=== PATIENT | male | born 1965 | race Caucasian/White ===

== ENCOUNTER 2017-01-01 09:50 | Inpatient (IN) | payer OTHER ==
[2017-01-01] VITALS (8 sets, daily range): BP systolic 168–214; BP diastolic 87–120; PULSE 59–88; TEMP 36.5–37; O2SAT 95–97; BMI 29.9
[~2017-01-01] VITALS: Ht 182.9 cm; Wt 93.5 kg
[2017-01-01] MEDS ORDERED: HydrALAZINE HCL 20 MG/ML VIAL IV. STA (10:13)
[2017-01-01] MEDS ORDERED: LABETALOL HCL IV 5 MG/ML 20ML IV STA (10:13)
--- NOTE | 2017-01-01 10:27 | EMERGENCY ROOM VISIT NOTE ---
History Report prepared by Sharlene: Andreia Guevara Under the Supervision of: Dr. Bandar Estevez M.D. First contact with patient: 10:07 Chief Complaint: STROKE SYMPTOMS Stated Complaint: NUMBNESS IN LEFT SIDE OF BODY Nursing Triage Summary: pt c/o left arm going numb and left leg numb. started at 0830 and happened 8 days ago got better after lying down. denies any headache .n/v/ History of Present Illness The patient is a 52 year old male who presents to the Emergency Room with complaints of persistent stroke symptoms that began today prior to arrival. The patient states that today he is experiencing left leg and left arm numbness. He states that he was just about to get in the shower when his symptoms began. The patient states that it started in his left hand and then in his left leg, noting numbness. He states that he had a similar episode 8 days ago. The patient states that with both episodes he became diaphoretic. He denies any medical history, denying any history of hypertension. The patient denies having a PCP. He states that his mother in law had a recent stroke. The patient denies any abdominal pain. Source of History: patient Onset: prior to arrival Position: other (global) Quality: other (stroke symptoms) Timing: other (persistent) Associated Symptoms: + numbness (left leg and left arm), No abdominal pain Review of Systems See HPI for pertinent positives & negatives. A total of 10 systems reviewed and were otherwise negative. Past Medical & Surgical Medical Problems: (1) No Known Active Medical Problems (2) Stroke-like symptom Family History Hypertension Social History Smoking Status: Never Smoker Smokeless Tobacco Use: No Marital Status: Housing Status: lives with significant other Occupation Status: employed Current/Historical Medications Scheduled PRN Aspirin (Aspirin Ec), 1 DOSE PO UD PRN for STROKE SYMPTOMS Allergies Coded Allergies: No Known Allergies (Unverified , 01/01/17) Physical Exam Vital Signs Date Time Temp Pulse Resp B/P (MAP) Pulse Ox O2 Delivery O2 Flow Rate FiO2 01/01/17 13:24 69 18 170/91 98 Room Air 01/01/17 12:45 71 20 185/110 97 Room Air 01/01/17 11:55 60 20 246/123 96 Room Air 01/01/17 11:06 72 18 241/152 95 Room Air 01/01/17 10:07 98 Room Air 01/01/17 10:02 36.6 68 18 260/126 96 Room Air Physical Exam GENERAL: Patient is a healthy-appearing well-nourished male HEAD: Normocephalic atraumatic EYES: Ocular movements intact pupils equal and react to light OROPHARYNX mucous membranes are moist no exudates present no erythema or edema present NECK: Supple no nuchal rigidity CHEST: Good equal expansion LUNGS: Clear and equal to auscultation CARDIAC: Normal S1 and S2 ABDOMEN: Soft nontender no guarding BACK: No CVA tenderness EXTREMITIES: No pain upon palpation normal muscle strength in all groups no clubbing cyanosis or edema NEURO: Patient is following commands and answering questions appropriately. Alert and oriented x3 Cranial Nerves 2-12 grossly intact Medical Decision & Procedures ER Provider Diagnostic Interpretation: Radiology results as stated below per my review and radiologist interpretation: HEAD WITHOUT CONTRAST (CT) CLINICAL HISTORY: 52 years-old Male presenting with Stroke, left arm numbness and left leg numbness. TECHNIQUE: Multidetector CT imaging of the head was performed without the use of intravenous contrast. IV contrast: None. A dose lowering technique was used consistent with the principles of ALARA (as low as reasonably achievable). COMPARISON: None. CT DOSE (mGy.cm): The estimated cumulative dose is 537.48 mGy.cm. 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 Ventricles and sulci normal in size. Brain parenchyma normal in appearance with preserved caro-white differentiation. No mass effect or midline shift. No hemorrhage or acute territorial infarct. No extra-axial fluid collection. Paranasal sinuses and mastoid air cells clear. Calvarium intact. IMPRESSION: 1. No acute intracranial pathology. Electronically signed by: Viraj Fiore M.D. 01/01/2017 10:56 AM Dictated Date/Time: 01/01/2017 10:53 AM CHEST ONE VIEW PORTABLE CLINICAL HISTORY: 52 years-old Male presenting with Stroke. TECHNIQUE: Portable upright AP view of the chest was obtained. COMPARISON: None. FINDINGS: Cardiomediastinal silhouette normal. Lungs and pleural spaces clear. Osseous structures normal. Upper abdomen normal. IMPRESSION: 1. No acute cardiopulmonary disease. Electronically signed by: Viraj Fiore M.D. 01/01/2017 10:40 AM Dictated Date/Time: 01/01/2017 10:40 AM Laboratory Results 01/01/17 10:38 Red Blood Count 5.50, Mean Corpuscular Volume 82.7, Mean Corpuscular Hemoglobin 30.9, Mean Corpuscular Hemoglobin Concent 37.4, Mean Platelet Volume 10.9, Neutrophils (%) (Auto) 66.2, Lymphocytes (%) (Auto) 23.2, Monocytes (%) (Auto) 6.0, Eosinophils (%) (Auto) 3.8, Basophils (%) (Auto) 0.6, Neutrophils # (Auto) 4.23, Lymphocytes # (Auto) 1.48, Monocytes # (Auto) 0.38, Eosinophils # (Auto) 0.24, Basophils # (Auto) 0.04 01/01/17 10:38 Test 01/01/17 10:34 01/01/17 10:38 Bedside Glucose 320 mg/dl (70-99) White Blood Count 6.38 K/uL (4.8-10.8) Red Blood Count 5.50 M/uL (4.7-6.1) Hemoglobin 17.0 g/dL (14.0-18.0) Hematocrit 45.5 % (42-52) Mean Corpuscular Volume 82.7 fL (80-100) Mean Corpuscular Hemoglobin 30.9 pg (25-34) Mean Corpuscular Hemoglobin Concent 37.4 g/dl (32-36) Platelet Count 282 K/uL (130-400) Mean Platelet Volume 10.9 fL (7.4-10.4) Neutrophils (%) (Auto) 66.2 % Lymphocytes (%) (Auto) 23.2 % Monocytes (%) (Auto) 6.0 % Eosinophils (%) (Auto) 3.8 % Basophils (%) (Auto) 0.6 % Neutrophils # (Auto) 4.23 K/uL (1.4-6.5) Lymphocytes # (Auto) 1.48 K/uL (1.2-3.4) Monocytes # (Auto) 0.38 K/uL (0.11-0.59) Eosinophils # (Auto) 0.24 K/uL (0-0.5) Basophils # (Auto) 0.04 K/uL (0-0.2) RDW Standard Deviation 37.9 fL (36.4-46.3) RDW Coefficient of Variation 12.7 % (11.5-14.5) Immature Granulocyte % (Auto) 0.2 % Immature Granulocyte # (Auto) 0.01 K/uL (0.00-0.02) Prothrombin Time 10.4 SECONDS (9.0-12.0) Prothromb Time International Ratio 1.0 (0.9-1.1) Activated Partial Thromboplast Time 27.1 SECONDS (21.0-31.0) Partial Thromboplastin Ratio 1.0 Anion Gap 6.0 mmol/L (3-11) Est Creatinine Clear Calc Drug Dose 71.6 ml/min Estimated GFR () 62.7 Estimated GFR (Non- 54.1 BUN/Creatinine Ratio 9.7 (10-20) Estimated Average Glucose 246 mg/dl Hemoglobin A1c 10.2 % (4.5-5.6) Calcium Level 9.4 mg/dl (8.5-10.1) Magnesium Level 2.1 mg/dl (1.8-2.4) Total Creatine Kinase 115 U/L (39-308) Creatine Kinase MB 1.9 ng/ml (0.5-3.6) Creatine Kinase MB Ratio 1.7 (0-3.0) Troponin I < 0.015 ng/ml (0-0.045) Beta-Hydroxybutyric Acid 1.47 mg/dL (0.2-2.81) Labs reviewed by ED physician. Medications Administered Medications (Trade) Dose Ordered Sig/Will Route Start Time Stop Time Status Last Admin Dose Admin Labetalol HCl (Normodyne IV) 10 mg NOW STAT IV 01/01/17 10:13 01/01/17 10:17 DC 01/01/17 11:03 10 MG Hydralazine HCl (HydrALAZINE INJ) 10 mg NOW STAT IV. 01/01/17 10:13 01/01/17 10:17 DC 01/01/17 11:01 10 MG Insulin Human Regular (novoLIN-R) 10 units NOW STAT SC 01/01/17 10:36 01/01/17 10:38 DC 01/01/17 11:05 10 UNITS Sodium Chloride 500 ml @ 999 mls/hr Q31M STAT IV 01/01/17 11:08 01/01/17 11:38 DC 01/01/17 11:23 999 MLS/HR Nicardipine HCl 25 mg/Sodium Chloride 250 ml @ 0 mls/hr Q0M STAT IV 01/01/17 11:31 01/01/17 11:33 DC 01/01/17 12:12 5 MLS/HR ED Course 1011: Past medical records reviewed. The patient was evaluated in room B2. A complete history and physical examination was performed. 1013: Ordered Hydralazine HCl 10 mg IV, Labetalol HCl 10 mg IV. 1036: Ordered Insulin Human Regular 10 units SC. 1108: Ordered Sodium Chloride 500 ml @ 999 mls/hr IV. 1121: I reevaluated the patient and he is resting comfortably. I discussed the exam findings with him and I discussed the treatment plan. He verbalized complete understanding and agreement. He is going to be evaluated for further treatment 1130: I discussed the patient's case with Emilia العراقي. He is going to evaluate the patient for further treatment. Medical Decision Differential diagnosis: Etiologies such as metabolic, infection, hypo/hyperglycemia, electrolyte abnormalities, cardiac sources, intracerebral event, toxicologic, neurologic, as well as others were entertained. This is a 52-year-old male who presents emergency department complaining of numbness to his left arm and left leg. The patient's blood pressure is grossly elevated. He has not been to see a doctor for several years. His blood sugar was found to be 300. Because of this the patient was given subcutaneous insulin in the emergency department and started on labetalol as well as hydralazine. Repeat exam revealed the patient's blood pressure still to be elevated. For this reason he was placed on a nicardipine drip. His creatinine is 1.4. He has a normal CAT scan of the head as well as a normal chest x-ray. I did discuss the case with the hospitalist service who agreed to admit the patient. Both patient and family were in agreement with the treatment plan. Medication Reconcilliation Current Medication List: was personally reviewed by me Blood Pressure Screening Patient's blood pressure: Elevated blood pressure Blood pressure disposition: Referred to PCP Consults Time Called: 1119 Consulting Physician: Emilia العراقي Returned Call: 1130 I discussed the patient's case with Emilia العراقي. He is going to evaluate the patient for further treatment. Impression Primary Impression: Hypertensive urgency Scribe Attestation The scribe's documentation has been prepared under my direction and personally reviewed by me in its entirety. I confirm that the note above accurately reflects all work, treatment, procedures, and medical decision making performed by me. Departure Information Dispostion Being Evaluated By Hospitalist Referrals No Doctor, Assigned (PCP)
[2017-01-01] MEDS ORDERED: INSULIN HUMAN REGULAR SC STA (10:36)
--- NOTE | 2017-01-01 10:42 | DIAGNOSTIC IMAGING REPORT ---
CHEST ONE VIEW PORTABLE CLINICAL HISTORY: 52 years-old Male presenting with Stroke. TECHNIQUE: Portable upright AP view of the chest was obtained. COMPARISON: None. FINDINGS: Cardiomediastinal silhouette normal. Lungs and pleural spaces clear. Osseous structures normal. Upper abdomen normal. IMPRESSION: 1. No acute cardiopulmonary disease. Electronically signed by: Viraj Fiore M.D. 01/01/2017 10:40 AM Dictated Date/Time: 01/01/2017 10:40 AM
[2017-01-01] MEDS ORDERED: ASPI81TA28 PO (10:48)
[2017-01-01 10:56] LABS: BASO % 0.6 %; BASO ABS # 0.04 K/uL (0-0.2); COMPLETE YES; EOS % 3.8 %; HEMATOCRIT 45.5 % (42-52); IG% 0.2 %; LYMPH % 23.2 %; LYMPH ABS # 1.48 K/uL (1.2-3.4); MEAN CELL VOLUME 82.7 fL (80-100); MEAN CORPUSCULAR HEMOGLOBIN 30.9 pg (25-34); MEAN CORPUSCULAR HGB CONC 37.4 g/dl (32-36); MEAN PLATELET VOLUME 10.9 fL (7.4-10.4); NEUT % 66.2 %; PLATELET COUNT 282 K/uL (130-400); WHITE BLOOD COUNT 6.38 K/uL (4.8-10.8)
[2017-01-01] MEDS ORDERED: NovoLIN-R INSULIN PER UNIT CHARGE ONE (10:57)
--- NOTE | 2017-01-01 10:57 | DIAGNOSTIC IMAGING REPORT ---
HEAD WITHOUT CONTRAST (CT) CLINICAL HISTORY: 52 years-old Male presenting with Stroke, left arm numbness and left leg numbness. TECHNIQUE: Multidetector CT imaging of the head was performed without the use of intravenous contrast. IV contrast: None. A dose lowering technique was used consistent with the principles of ALARA (as low as reasonably achievable). COMPARISON: None. CT DOSE (mGy.cm): The estimated cumulative dose is 537.48 mGy.cm. 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 Ventricles and sulci normal in size. Brain parenchyma normal in appearance with preserved caro-white differentiation. No mass effect or midline shift. No hemorrhage or acute territorial infarct. No extra-axial fluid collection. Paranasal sinuses and mastoid air cells clear. Calvarium intact. IMPRESSION: 1. No acute intracranial pathology. Electronically signed by: Viraj Fiore M.D. 01/01/2017 10:56 AM Dictated Date/Time: 01/01/2017 10:53 AM
[2017-01-01 11:06] LABS: BLOOD UREA NITROGEN 14 mg/dl (7-18); BUN/CREATININE RATIO 9.7 (10-20); CALCIUM 9.4 mg/dl (8.5-10.1); CARBON DIOXIDE 29 mmol/L (21-32); CHLORIDE 103 mmol/L (98-107); CREATININE 1.46 mg/dl (0.60-1.40); GLUCOSE 294 mg/dl (70-99); MAGNESIUM 2.1 mg/dl (1.8-2.4); POTASSIUM 4.1 mmol/L (3.5-5.1); SODIUM 138 mmol/L (136-145)
[2017-01-01] MEDS ORDERED: SODIUM CHLORIDE 0.9% 500ML 500 ML IV STA (11:08)
[2017-01-01 11:11] LABS: BETA-HYDROXYBUTYRATE 1.47 mg/dL (0.2-2.81); CKMB/CK RATIO 1.7 (0-3.0); PROTHROMBIN TIME (PATIENT) 10.4 SECONDS (9.0-12.0)
[2017-01-01] MEDS ORDERED: NiCARDipine IV 25 MG in SODIUM CHLORIDE 0.9% 250ML 240 ML IV STA (11:31)
[2017-01-01] MEDS ORDERED: GLUCAGON FOR INJ 1 MG VIAL SQ PRN (12:15)
[2017-01-01] MEDS ORDERED: GLUCOSE 10 TABS/TUBE PO PRN (12:15)
[2017-01-01] MEDS ORDERED: GLUCOSE 40% GEL 15 GM TUBE PO PRN (12:15)
[2017-01-01] MEDS ORDERED: NITROGLYCERIN 0.4 MG SL PER TAB CHARGE SL PRN (12:15)
[2017-01-01] MEDS ORDERED: DEXTROSE 50% 50 ML SYR IV PRN (12:15)
[2017-01-01] MEDS ORDERED: ACETAMINOPHEN 325 MG TAB PO PRN (12:15)
[2017-01-01 12:19] LABS: ESTIMATED AVERAGE GLUCOSE 246 mg/dl; HA1C FLAG Normal (Normal)
--- NOTE | 2017-01-01 12:45 | History and Physical ---
History & Physical Date & Time of Service: Jan 01, 2017 at 12:27 Chief Complaint: Numbness In Left Side Of Body Primary Care Physician: No Doctor, Assigned History of Present Illness Source: patient, family This is a 52 year old male with no past medical history - does not follow with a primary care physician and does no take any medications - presents secondary to L sided weakness; L arm numbness/tingling and L leg motor weakness. States that he had this about 8 days prior to arrival, and the symptoms lasted around 20 minutes. He states that another time, he was having trouble typing with his left hand; it was weak and he was missing the keys. This morning, he developed L sided weakness/numbness/tingling again; again it lasted about 20 minutes and symptoms began to subside, but he came to the ER for further evaluation. On presentation, he was noted to have blood pressure >250/100; noted to have blood sugars >300. Head CT was negative. Symptoms resolved, but blood pressure remained high. Family History Hypertension Social History Smoking Status: Never Smoker Smokeless Tobacco Use: No Marital Status: Occupational Status: employed Allergies Coded Allergies: No Known Allergies (Unverified , 01/01/17) Home Medications Scheduled PRN Aspirin (Aspirin Ec), 1 DOSE PO UD PRN for STROKE SYMPTOMS Review of Systems Constitutional: No fever, No chills, No sweats, No weight loss, No weakness, No fatigue Eyes: No worsening of vision Respiratory: No cough, No sputum, No shortness of breath, No dyspnea on exertion, No dyspnea at rest, No hemoptysis Cardiovascular: No chest pain, No edema, No palpitations Abdomen: No pain, No nausea, No vomiting, No diarrhea, No constipation, No GI bleeding Musculoskeletal: No joint pain, No muscle pain Genitourinary - Male: No hematuria, No dysuria, No urinary frequency, No urinary urgency, No urinary hesitancy, No urinary retention, No urinary incontinence, No penile discharge, No lesions, No impotence Neurologic: + weakness, + numbness/tingling (L sided), No memory loss, No paralysis, No vertigo, No balance problems Psychiatric: No depression symptoms, No anxiety, No insomnia, No substance abuse Endocrine: No fatigue Hematologic / Lymphatic: No abnormal bleeding/bruising Integumentary: No rash, No itch Allergic / Immunologic: No environmental allergies, No seasonal allergies Physical Exam Vital Signs Date Time Temp Pulse Resp B/P (MAP) Pulse Ox O2 Delivery O2 Flow Rate FiO2 01/01/17 11:55 60 20 246/123 96 Room Air 01/01/17 11:06 72 18 241/152 95 Room Air 01/01/17 10:07 98 Room Air 01/01/17 10:02 36.6 68 18 260/126 96 Room Air General Appearance: no apparent distress Head: normocephalic, atraumatic Eyes: normal inspection ENT: hearing grossly normal Neck: supple Respiratory/Chest: chest non-tender, lungs clear, normal breath sounds, no respiratory distress, no accessory muscle use Cardiovascular: regular rate, rhythm, no edema, no gallop, no JVD, no murmur, normal peripheral pulses Abdomen/GI: normal bowel sounds, non tender, soft Back: no CVA tenderness, no muscle spasm Extremities/Musculoskelatal: normal inspection, no calf tenderness, normal capillary refill, no pedal edema, normal range of motion 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, no motor/sensory deficits, alert, normal mood/affect, normal reflexes, oriented x 3 Skin: normal color Lymphatic: no adenopathy Diagnostics Laboratory Results Results Past 24 Hours Test 01/01/17 10:34 01/01/17 10:38 Range/Units Bedside Glucose 320 70-99 mg/dl White Blood Count 6.38 4.8-10.8 K/uL Red Blood Count 5.50 4.7-6.1 M/uL Hemoglobin 17.0 14.0-18.0 g/dL Hematocrit 45.5 42-52 % Mean Corpuscular Volume 82.7 80-100 fL Mean Corpuscular Hemoglobin 30.9 25-34 pg Mean Corpuscular Hemoglobin Concent 37.4 32-36 g/dl Platelet Count 282 130-400 K/uL Mean Platelet Volume 10.9 7.4-10.4 fL Neutrophils (%) (Auto) 66.2 % Lymphocytes (%) (Auto) 23.2 % Monocytes (%) (Auto) 6.0 % Eosinophils (%) (Auto) 3.8 % Basophils (%) (Auto) 0.6 % Neutrophils # (Auto) 4.23 1.4-6.5 K/uL Lymphocytes # (Auto) 1.48 1.2-3.4 K/uL Monocytes # (Auto) 0.38 0.11-0.59 K/uL Eosinophils # (Auto) 0.24 0-0.5 K/uL Basophils # (Auto) 0.04 0-0.2 K/uL RDW Standard Deviation 37.9 36.4-46.3 fL RDW Coefficient of Variation 12.7 11.5-14.5 % Immature Granulocyte % (Auto) 0.2 % Immature Granulocyte # (Auto) 0.01 0.00-0.02 K/uL Prothrombin Time 10.4 9.0-12.0 SECONDS Prothromb Time International Ratio 1.0 0.9-1.1 Activated Partial Thromboplast Time 27.1 21.0-31.0 SECONDS Partial Thromboplastin Ratio 1.0 Sodium Level 138 136-145 mmol/L Potassium Level 4.1 3.5-5.1 mmol/L Chloride Level 103 98-107 mmol/L Carbon Dioxide Level 29 21-32 mmol/L Anion Gap 6.0 3-11 mmol/L Blood Urea Nitrogen 14 7-18 mg/dl Creatinine 1.46 0.60-1.40 mg/dl Est Creatinine Clear Calc Drug Dose 71.6 ml/min Estimated GFR () 62.7 Estimated GFR (Non- 54.1 BUN/Creatinine Ratio 9.7 10-20 Random Glucose 294 70-99 mg/dl Estimated Average Glucose 246 mg/dl Hemoglobin A1c 10.2 4.5-5.6 % Calcium Level 9.4 8.5-10.1 mg/dl Magnesium Level 2.1 1.8-2.4 mg/dl Total Creatine Kinase 115 39-308 U/L Creatine Kinase MB 1.9 0.5-3.6 ng/ml Creatine Kinase MB Ratio 1.7 0-3.0 Troponin I < 0.015 0-0.045 ng/ml Beta-Hydroxybutyric Acid 1.47 0.2-2.81 mg/dL Diagnostic Radiology CHEST ONE VIEW PORTABLE CLINICAL HISTORY: 52 years-old Male presenting with Stroke. TECHNIQUE: Portable upright AP view of the chest was obtained. COMPARISON: None. FINDINGS: Cardiomediastinal silhouette normal. Lungs and pleural spaces clear. Osseous structures normal. Upper abdomen normal. IMPRESSION: 1. No acute cardiopulmonary disease. HEAD WITHOUT CONTRAST (CT) CLINICAL HISTORY: 52 years-old Male presenting with Stroke, left arm numbness and left leg numbness. TECHNIQUE: Multidetector CT imaging of the head was performed without the use of intravenous contrast. IV contrast: None. A dose lowering technique was used consistent with the principles of ALARA (as low as reasonably achievable). COMPARISON: None. CT DOSE (mGy.cm): The estimated cumulative dose is 537.48 mGy.cm. 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 Ventricles and sulci normal in size. Brain parenchyma normal in appearance with preserved caro-white differentiation. No mass effect or midline shift. No hemorrhage or acute territorial infarct. No extra-axial fluid collection. Paranasal sinuses and mastoid air cells clear. Calvarium intact. IMPRESSION: 1. No acute intracranial pathology. EKG Normal sinus rhythm Left ventricular hypertrophy with repolarization abnormality Impression Assessment and Plan This is a 52 year old male with no past medical history presented with L sided numbness/tingling/weakness Hypertensive Urgency patient presented with SBP >250/100 given Hydralazine, Labetalol in the ED with little change in blood pressure this seems like long-standing uncontrolled HTN due to LVH changes on EKG will check an echo start nicardipine drip at 5mg/hr initially - goal reduction should be slow; ~ 180-190 SBP in 24 hours will then need to be started on an SERGEY-I due to new diagnosis of diabetes Stroke-Like Symptoms patient presented with L sided arm and leg numbness/tingling and motor weakness which subsided likely due to malignant HTN as above Head CT negative for intracranial pathology will check an MRI, MRA of head/neck check lipid panel in AM started aspirin 81mg and Lipitor consulted neurology New Onset DM2 Ha1c = 10.2% started patient on Lantus 5 units BID and a sliding scale will likely need insulin on discharge should be started on SERGEY-I prior to discharge started on aspirin 81mg and Lipitor diabetic education consulted DVT ppx Lovenox FULL CODE VTE Prophylaxis VTE Risk Assessment Done? Y/N: Yes Risk Level: Moderate
--- NOTE | 2017-01-01 15:28 | DIAGNOSTIC IMAGING REPORT ---
BRAIN WITHOUT CONTRAST CLINICAL HISTORY: 52 years-old Male presenting with r/o CVA, stroke-like symptoms, L numb/tingling. TECHNIQUE: Multisequence, multiplanar MR imaging of the brain was performed without the use of intravenous contrast. IV contrast: None. COMPARISON: CT head performed the same day. FINDINGS: Ventricles and sulci normal in size. Periventricular and subcortical white matter T2/FLAIR hyperintensity, nonspecific but likely indicative of chronic small vessel ischemic change. Bilateral basal ganglia old lacunar infarcts. Slight asymmetric FLAIR hyperintensity in the left hippocampal tail, nonspecific No mass effect or midline shift. No restricted diffusion to suggest acute ischemia. No hemorrhage. No extra-axial fluid collection. T2 skull base flow voids preserved. Polypoid mucosal thickening in the maxillary sinuses. Bone marrow signal intensity within the calvarium within normal limits. IMPRESSION: 1. Chronic small vessel ischemic change and old lacunar infarcts in the basal ganglia. No acute intracranial abnormality. Electronically signed by: Viraj Fiore M.D. 01/01/2017 3:26 PM Dictated Date/Time: 01/01/2017 3:22 PM
[2017-01-01] MEDS ORDERED: GADAVIST IV PRN (15:30)
--- NOTE | 2017-01-01 15:37 | DIAGNOSTIC IMAGING REPORT ---
MRA HEAD WITHOUT CONTRAST, MRA NECK COMBO CLINICAL HISTORY: 52 years-old Male presenting with left hand and left leg numbness, concern for stroke. TECHNIQUE: MR angiography of the head was performed without the use of intravenous contrast using 3-D [id number] technique. Subsequently, MR angiography of the neck was performed before and after the administration of intravenous contrast. 3-D volumetric and/or maximum intensity projection (MIP) images were subsequently reconstructed for review. IV contrast: 9.5 mL of Gadavist. Stenosis measurements were based on NASCET-like criteria. COMPARISON: None. FINDINGS: MRA head: Anterior circulation demonstrates patent intracranial portions of the internal carotid arteries. Bilateral anterior and middle cerebral arteries patent. Anterior communicating artery patent. Posterior circulation demonstrates codominant vertebral arteries. Patent posterior inferior cerebellar, superior cerebellar, and posterior cerebral arteries. Anterior inferior cerebellar arteries not well visualized. Aplastic or hypoplastic posterior communicating arteries. No significant stenosis, occlusion, or aneurysm. MRA neck: Initial precontrast imaging demonstrates normal flow related enhancement in the bilateral common and internal carotid arteries as well as the bilateral codominant vertebral arteries. Subsequently, postcontrast imaging demonstrates a three-vessel aortic arch with patent origins of the branch vessels. Again, common and internal carotid arteries patent bilaterally. Tortuosity of the internal carotid arteries could suggest chronic hypertension. Patent origins and courses of the codominant vertebral arteries. Delayed imaging demonstrates patent cervical venous structures. No significant stenosis, occlusion, or dissection. IMPRESSION: 1. No significant stenosis, aneurysm, or focal vessel occlusion in the intracranial vasculature. 2. No second stenosis, occlusion, or dissection in the cervical vasculature. Electronically signed by: Viraj Fiore M.D. 01/01/2017 3:35 PM Dictated Date/Time: 01/01/2017 3:29 PM
[2017-01-01] MEDS ORDERED: INSULIN GLARGINE SOLOSTAR 100 UNITS/ML 3 ML PEN SC ONE (16:00)
[2017-01-01] MEDS: INSULIN ASPART 100 UNITS/ML 3 ML PEN SC SCH ×2 (16:15→21:20)
[2017-01-01] MEDS ORDERED: ASPIRIN 81 MG ECTAB PO STA (16:26)
[2017-01-01] MEDS ORDERED: NURSING VERBAL MED ORDER ONE (16:30)
[2017-01-01] MEDS ORDERED: ATORVASTATIN 40 MG TAB PO ONE ×2 (16:30→20:15)
[2017-01-01] MEDS: ENOXAPARIN 40 MG/0.4 ML SYR SC SCH (16:45)
[2017-01-01] MEDS ORDERED: ONDANSETRON INJ 2 MG/ML 2 ML VIAL ONE (17:19)
[2017-01-01] MEDS ORDERED: ONDANSETRON INJ 2 MG/ML 2 ML VIAL IV PRN (17:30)
[2017-01-01 18:43] LABS: CKMB/CK RATIO 0.9 (0-3.0)
[2017-01-01] MEDS: NiCARDipine IV 25 MG in SODIUM CHLORIDE 0.9% 250ML 240 ML IV SCH (19:15)
[2017-01-01] MEDS ORDERED: CLOPIDOGREL BISULFATE 75 MG TAB PO ONE (20:15)
[2017-01-01] MEDS: INSULIN GLARGINE SOLOSTAR 100 UNITS/ML 3 ML PEN SC SCH (21:21)
[2017-01-02] VITALS (16 sets, daily range): BP systolic 157–218; BP diastolic 85–121; PULSE 59–82; TEMP 36.4–36.7; O2SAT 91–97
[2017-01-02 02:29] LABS: CKMB/CK RATIO 1.9 (0-3.0)
[2017-01-02] MEDS: HydrALAZINE HCL 20 MG/ML VIAL IV. PRN (03:01)
[2017-01-02] MEDS ORDERED: LABETALOL HCL IV 5 MG/ML 20ML IV ONE ×2 (05:13→05:15)
[2017-01-02 07:46] LABS: HEMATOCRIT 46.3 % (42-52); MEAN CELL VOLUME 82.4 fL (80-100); MEAN CORPUSCULAR HEMOGLOBIN 30.1 pg (25-34); MEAN CORPUSCULAR HGB CONC 36.5 g/dl (32-36); MEAN PLATELET VOLUME 10.6 fL (7.4-10.4); PLATELET COUNT 292 K/uL (130-400); RED BLOOD COUNT 5.62 M/uL (4.7-6.1); WHITE BLOOD COUNT 9.53 K/uL (4.8-10.8)
[2017-01-02 08:10] LABS: BUN/CREATININE RATIO 10.6 (10-20); CALCIUM 9.4 mg/dl (8.5-10.1); CREATININE 1.25 mg/dl (0.60-1.40); POTASSIUM 3.9 mmol/L (3.5-5.1)
[2017-01-02 08:21] LABS: CHOLESTEROL/HDL RATIO 6.1; THYROID STIMULATING HORMONE 0.813 uIu/ml (0.300-4.500)
[2017-01-02] MEDS ORDERED: INSULIN GLARGINE SOLOSTAR 100 UNITS/ML 3 ML PEN SC SCH (09:00)
[2017-01-02] MEDS: ATORVASTATIN 40 MG TAB PO SCH (09:18)
[2017-01-02] MEDS: ASPIRIN 81 MG ECTAB PO SCH (09:19)
[2017-01-02] MEDS: INSULIN ASPART 100 UNITS/ML 3 ML PEN SC SCH ×4 (09:20→21:03)
[2017-01-02] MEDS: INSULIN GLARGINE SOLOSTAR 100 UNITS/ML 3 ML PEN SC SCH ×2 (09:21→21:03)
--- NOTE | 2017-01-02 09:41 | ECHOCARDIOGRAM REPORT ---
*NOTICE TO RECEIVING [employer] This information is strictly Confidential and protected under [place] law. [place] law prohibits you from making any further disclosure of this information unless further disclosure is expressly permitted by the written consent of the person to whom it pertains or is authorized by law. A general authorization for the release of medical or other information is not sufficient for this purpose. Hospital accepts no responsibility if the information is made available to any other person, INCLUDING THE PATIENT. Interpretation Summary * Name: NESTOR NANCE Study Date: 01/01/2017 01:10 PM BP: 170/91 mmHg * Patient Location: C.EDB HR: 75 * : 1965 (M/d/yyyy) Gender: Male Height: 72 in * Age: 52 yrs Ethnicity: CA Weight: 220 lb * Ordering Physician: Nikki Rios * Referring Physician: Self, Referred * Performed By: Ladonna Mcgregor RCS * * Reason For Study: HTN * BSA: 2.2 m2 * -- Conclusions -- * Normal LV chamber size with severe concentric LVH, speckling pattern suggestive of amyloid cardiomyopathy. * Normal LV systolic function, EF 60-65%. * No segmental left ventricular wall motion abnormalities are noted. * Grade I diastolic dysfunction. * There is mild right ventricular hypertrophy. * No significant valvular pathology. * Moderate left atrial enlargement. Procedure Details * A complete two-dimensional transthoracic echocardiogram was performed (2D, M-mode, Doppler and color flow Doppler). Left Ventricle * The left ventricle is normal in size. * There is severe concentric left ventricular hypertrophy. * Left ventricular systolic function is normal. * No segmental left ventricular wall motion abnormalities are noted. * Ejection Fraction = 60-65%. * The left ventricular wall motion is normal. Right Ventricle * The right ventricular cavity size is normal (basal dimension <4.2 cm in right ventricular apical 4-chamber view). * There is mild right ventricular hypertrophy. * The right ventricular systolic function is normal as assessed by tricuspid annular plane systolic excursion (TAPSE) (normal >1.5 cm). Atria * The left atrium is moderately dilated. * Right atrial size is normal. * No ASD detected; PFO is not assessed. Mitral Valve * The mitral valve is normal in structure and function. Tricuspid Valve * The tricuspid valve is normal in structure and function. Aortic Valve * The aortic valve is not well visualized. * No hemodynamically significant valvular aortic stenosis. * There is no significant aortic regurgitation. Pulmonic Valve * The pulmonary valve is not well seen, but the Doppler examination is normal without significant regurgitation or stenosis. Great Vessels * The aortic root is normal size. Pericardium/Pleural * There is no pericardial effusion. Left Ventricular Diastolic Function * Grade I diastolic dysfunction, (abnormal relaxation pattern). MMode 2D Measurements and Calculations IVSd 2.1 cm IVSs 2.1 cm LVIDd 4.6 cm LVIDs 3.5 cm LVPWd 1.7 cm LVPWs 1.9 cm IVS/LVPW 1.2 FS 24.3 % EDV(Teich) 99.3 ml ESV(Teich) 51.3 ml EF(Teich) 48.3 % EDV(cubed) 99.8 ml ESV(cubed) 43.3 ml EF(cubed) 56.6 % % IVS thick 2.8 % % LVPW thick 11.1 % LV mass(C)d 418.1 grams LV mass(C)dI 188.5 grams/m\S\2 LV mass(C)s 324.7 grams LV mass(C)sI 146.4 grams/m\S\2 SV(Teich) 48.0 ml SI(Teich) 21.6 ml/m\S\2 SV(cubed) 56.5 ml SI(cubed) 25.5 ml/m\S\2 Ao root diam 3.5 cm Ao root area 9.5 cm\S\2 ACS 1.8 cm LA dimension 4.4 cm LA/Ao 1.3 LVOT diam 2.0 cm LVOT area 3.2 cm\S\2 LVAd ap4 42.1 cm\S\2 LVLd ap4 9.8 cm EDV(MOD-sp4) 146.8 ml EDV(sp4-el) 153.6 ml LVAs ap4 27.6 cm\S\2 LVLs ap4 8.6 cm ESV(MOD-sp4) 76.7 ml ESV(sp4-el) 74.8 ml EF(MOD-sp4) 47.7 % EF(sp4-el) 51.3 % LVAd ap2 37.4 cm\S\2 LVLd ap2 8.8 cm EDV(MOD-sp2) 127.3 ml EDV(sp2-el) 135.5 ml LVAs ap2 23.6 cm\S\2 LVLs ap2 7.0 cm ESV(MOD-sp2) 67.2 ml ESV(sp2-el) 67.4 ml EF(MOD-sp2) 47.2 % EF(sp2-el) 50.3 % LVLd %diff -12.06 % EDV(MOD-bp) 142.5 ml LVLs %diff -22.66 % ESV(MOD-bp) 75.6 ml EF(MOD-bp) 47.0 % SV(MOD-sp4) 70.1 ml SI(MOD-sp4) 31.6 ml/m\S\2 SV(MOD-sp2) 60.1 ml SI(MOD-sp2) 27.1 ml/m\S\2 SV(MOD-bp) 67.0 ml SI(MOD-bp) 30.2 ml/m\S\2 SV(sp4-el) 78.8 ml SI(sp4-el) 35.5 ml/m\S\2 SV(sp2-el) 68.1 ml SI(sp2-el) 30.7 ml/m\S\2 Doppler Measurements and Calculations MV E max romeo 46.4 cm/sec MV A max romeo 70.1 cm/sec MV E/A 0.66 MV P1/2t max romeo 57.8 cm/sec MV P1/2t 61.0 msec MVA(P1/2t) 3.6 cm\S\2 MV dec slope 277.4 cm/sec\S\2 MV dec time 0.20 sec Ao V2 max 114.7 cm/sec Ao max PG 5.3 mmHg Ao max PG (full) 2.1 mmHg FELISHA(V,A) 2.5 cm\S\2 FELISHA(V,D) 2.5 cm\S\2 LV V1 max PG 3.2 mmHg LV V1 max 89.0 cm/sec PA V2 max 120.8 cm/sec PA max PG 5.8 mmHg
[2017-01-02] MEDS: NiCARDipine IV 25 MG in SODIUM CHLORIDE 0.9% 250ML 240 ML IV SCH ×2 (10:21→20:15)
--- NOTE | 2017-01-02 15:45 | Progress Note ---
Medicine Progress Note Date & Time of Visit: Jan 02, 2017 at 15:24. Subjective Patient was seen earlier today. Patient reports that his symptoms of left sided paresthesias and weakness had been intermittent until 9PM last evening, he states the symptoms have continued since then and have only slightly improved. He has difficulty keeping his left side extremities up against gravity. He also reports having vertigo anytime he sits up or stands up. He states he feels his appetite is low because of the dizziness. He also complains of having dry mouth , but is afraid to drink water because it makes him urinate more and that requires standing or sitting up. He does not want any PRN medication for the dizziness at this time. Family came to the bedside and was updated. Objective Last 8 Hrs Date Time Temp Pulse Resp B/P (MAP) Pulse Ox O2 Delivery O2 Flow Rate FiO2 01/02/17 14:21 74 175/89 (117) 01/02/17 13:30 170/88 (115) 01/02/17 12:00 Room Air 01/02/17 11:53 36.7 82 22 184/102 (129) 95 Room Air 01/02/17 09:55 74 180/96 (124) 01/02/17 08:56 198/111 (140) 01/02/17 08:00 Room Air 01/02/17 07:56 36.7 67 20 201/106 (137) 94 Room Air Physical Exam: GENERAL: Patient is in no acute distress. HEENT: No acute trauma, normocephalic atraumatic, mucous membranes moist, no nasal congestion, no scleral icterus. Conjunctivae clear NECK: No stridor, trachea is midline. LUNGS: Clear to auscultation bilaterally, no wheeze, no rhonchi, breath sounds equal. HEART: Without murmurs gallops or rubs, regular rate and rhythm. ABDOMEN: Soft, nontender, bowel sounds positive, no hepatosplenomegaly EXTREMITIES: No cyanosis or edema, LUE -3/5, LLE -3/5 NEUROLOGIC: Oriented x 3, no acute motor or sensory deficits, no focal weakness. Slight left flattened NL fold SKIN: No rash, no jaundice, no diaphoresis. Laboratory Results: Last 24 Hours Test 01/01/17 17:16 01/01/17 17:57 01/01/17 20:54 01/02/17 01:50 Bedside Glucose 193 mg/dl 268 mg/dl Total Creatine Kinase 163 U/L 91 U/L Creatine Kinase MB 1.5 ng/ml 1.7 ng/ml Creatine Kinase MB Ratio 0.9 1.9 Troponin I < 0.015 ng/ml 0.109 ng/ml Hepatitis C Antibody Screen NEG Test 01/02/17 07:30 01/02/17 10:59 01/02/17 12:59 01/02/17 13:26 White Blood Count 9.53 K/uL Red Blood Count 5.62 M/uL Hemoglobin 16.9 g/dL Hematocrit 46.3 % Mean Corpuscular Volume 82.4 fL Mean Corpuscular Hemoglobin 30.1 pg Mean Corpuscular Hemoglobin Concent 36.5 g/dl RDW Standard Deviation 39.4 fL RDW Coefficient of Variation 13.2 % Platelet Count 292 K/uL Mean Platelet Volume 10.6 fL Sodium Level 137 mmol/L Potassium Level 3.9 mmol/L Chloride Level 101 mmol/L Carbon Dioxide Level 27 mmol/L Anion Gap 8.0 mmol/L Blood Urea Nitrogen 13 mg/dl Creatinine 1.25 mg/dl Est Creatinine Clear Calc Drug Dose 81.4 ml/min Estimated GFR () 75.7 Estimated GFR (Non- 65.3 BUN/Creatinine Ratio 10.6 Random Glucose 238 mg/dl Calcium Level 9.4 mg/dl Creatine Kinase MB 1.9 ng/ml 1.9 ng/ml Creatine Kinase MB Ratio Troponin I 0.307 ng/ml 0.266 ng/ml Triglycerides Level 178 mg/dl Cholesterol Level 339 mg/dl HDL Cholesterol 56 mg/dl LDL Cholesterol, Calculated 247 mg/dl VLDL Cholesterol, Calculated 36 mg/dl Cholesterol/HDL Ratio 6.1 Thyroid Stimulating Hormone (TSH) 0.813 uIu/ml Hepatitis C Antibody NEG Bedside Glucose 247 mg/dl Assessment & Plan LEFT SIDED WEAKNESS: probable stroke vs TIA -initial CT head negative, a repeat CT head ordered -initial MRI showed old bilateral basal ganglia lacunar infarcts -MRA did not show any large vessel stenosis -presented with left side extremity weakness and paresthesias which were intermittent over the last day, however per records the patient has had complete weakness of his left side that did not resolve and continues to persist. He also appears to have a slight left facial droop. -TTE with bubble study ordered -Neurology consulted, recommended a repeat MRI tomorrow -Permissive HTN with nicardipine drip, currently BP is around 170s/80s -was started on ASA and statin yesterday -lipid panel shows LDL 247, Total 339, Trigly 178, HDL 56 HYPERTENSIVE URGENCY: -SBP 260s/100s on presentation to the ER -received Hydralazine and Labetalol in the ER without significant improvement, but avoiding aggressive treatment given possibility of stroke -most likely long-standing uncontrolled HTN due to LVH changes on EKG and tortuous internal carotid artery on MRA -TTE pending -on nicardipine drip at 5mg/hr -goal for slow reduction; to maintain SBP 170-190 -will start on an SERGEY-I once outside the acute window NEWLY DISCOVERED DM TYPE II: -HbA1c: 10.2% -started on Lantus 5 units BID + correction scale insulin -will need insulin on discharge -will consult Diabetes education -should be started on SERGEY-I prior to discharge DYSLIPIDEMIA: -Newly diagnosed; LDL 247, Total 339 -started on statin on admission -may need higher dose initially Current Inpatient Medications: Current Inpatient Medications Medications (Trade) Dose Ordered Sig/Will Route Start Time Stop Time Status Last Admin Dose Admin Nicardipine HCl 25 mg/Sodium Chloride 250 ml @ 0 mls/hr Q0M IV 01/01/17 11:51 01/31/17 11:50 01/02/17 10:21 50 MLS/HR Enoxaparin Sodium (Lovenox Inj) 40 mg Q24H SC 01/01/17 16:00 01/31/17 15:59 01/01/17 16:45 40 MG Acetaminophen (Tylenol Tab) 650 mg Q4H PRN PO 01/01/17 12:15 01/31/17 12:14 Nitroglycerin (Nitrostat Tab) 0.4 mg UD PRN SL 01/01/17 12:15 01/31/17 12:14 Insulin Aspart (novoLOG ASPART) SLIDING SCALE If C... ACHS SC 01/01/17 16:00 01/31/17 15:59 01/02/17 13:54 3 UNITS Glucose (Glucose 40% Gel) 15-30 GRAMS 15 GRAMS... UD PRN PO 01/01/17 12:15 01/31/17 12:14 Glucose (Glucose Chew Tab) 4-8 Tablets 4 Tabl... UD PRN PO 01/01/17 12:15 01/31/17 12:14 Dextrose (Dextrose 50% 50ML Syringe) 25-50ML OF 50% DW IV FOR... UD PRN IV 01/01/17 12:15 01/31/17 12:14 Glucagon (Glucagon Inj) 1 mg UD PRN SQ 01/01/17 12:15 01/31/17 12:14 Atorvastatin Calcium (Lipitor Tab) 40 mg QAM PO 01/02/17 09:00 02/01/17 08:59 01/02/17 09:18 40 MG Aspirin (Ecotrin Tab) 81 mg QAM PO 01/02/17 09:00 02/01/17 08:59 01/02/17 09:19 81 MG Gadobutrol (Gadavist) 9.5 mmol UD PRN IV 01/01/17 15:30 01/05/17 15:29 Insulin Glargine (Lantus Solostar Pen) 10 units Q12 SC 01/01/17 21:00 01/31/17 20:59 01/02/17 09:21 10 UNITS Ondansetron HCl (Zofran Inj) 4 mg Q4H PRN IV 01/01/17 17:30 01/31/17 17:29 01/01/17 20:22 4 MG Hydralazine HCl (HydrALAZINE INJ) 10 mg Q6 PRN IV. 01/02/17 02:45 02/01/17 02:44 01/02/17 03:01 10 MG
--- NOTE | 2017-01-02 16:00 | DIAGNOSTIC IMAGING REPORT ---
HEAD WITHOUT CONTRAST (CT) CLINICAL HISTORY: 52 years-old Male with left sided weakness. Acute left-sided weakness with strokelike symptoms TECHNIQUE: Multiple axial CT images of the head were obtained without contrast. A dose lowering technique was utilized adhering to the principles of ALARA. CT DOSE: 614.27 mGy.cm COMPARISON: CT head 01/01/2017. FINDINGS: No acute intracranial hemorrhage, midline shift, mass, large territorial ischemia or abnormal extra-axial collection. Ill-defined areas of low attenuation are again seen within the subcortical and periventricular white matter of the cerebral hemispheres bilaterally suggesting chronic microvascular ischemic changes. There are remote lacunar infarctions of the basal ganglia. The calvarium is intact. The paranasal sinuses, mastoid air cells, and middle ear cavities are clear. IMPRESSION: 1. No acute intracranial abnormality. 2. Chronic microvascular ischemic changes with remote lacunar infarctions of the basal ganglia redemonstrated. The above report was generated using voice recognition software. It may contain grammatical, syntax or spelling errors. Electronically signed by: Froilan Frey M.D. 01/02/2017 3:59 PM Dictated Date/Time: 01/02/2017 3:56 PM
[2017-01-02] MEDS: ENOXAPARIN 40 MG/0.4 ML SYR SC SCH (17:24)
--- NOTE | 2017-01-02 19:57 | CONSULTATION REPORT ---
DATE OF CONSULTATION: 01/02/2017 FOR: DO Angel Gutiérrez is 52 years old, right handed. He hails from [place], [place]. He was up to a football game yesterday when during the third quarter, he suddenly noted the onset of left-sided arm and leg clumsiness and numbness to the point that he had difficulty raising his arm, but was still able to walk. He had a similar event of transient type about 9 days previously, but this had resolved. When seen in our ER yesterday he was evaluated and was found to have extreme hypertension with blood pressure systolic 250, diastolic 100, glucose was greater than 300. Head scan was negative. Symptoms began to resolve, but then recurred and have persisted overnight, although he feels his left arm is improved from its worst point last evening. He cannot bear weight at this point in the left leg. An initial MRI was negative except for the presence of bilateral old lacunar infarctions in the basal ganglia, which clinically were silent and the MRA of the cervical vessels and carotid intracranial vessels were all unremarkable revealing no evidence for dissection, stenoses, intracranial issues, and subsequent echocardiogram has showed left ventricular hypertrophy with amyloid cardiomyopathy pattern and left atrial enlargement, but no other potential source of cardiogenic emboli, although a transesophageal has not been done. Labs have shown dyslipidemia and hyperglycemia with elevated hemoglobin A 1 C levels consistent with chronic glucose intolerance. It is clear that all this occurs in the setting of a relatively benign past medical history, although it should be pointed out if this man rarely ever sees a physician. He is not a smoker. He rarely uses ethanol. 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 He to his knowledge has not seen a physician for over 5 years. FAMILY HISTORY: Strongly positive for hypertension. REVIEW OF SYSTEMS: Reveals no recent weight loss or weight gain. He does admit to a little bit of thirst, but no frequent urination. He has had no problems referable to head, eyes, ears, nose and throat; cardiovascular; pulmonary; gastrointestinal; genitourinary; or musculoskeletal system. Neurologically, he had the event of transient left-sided numbness and heaviness about 9 days ago and then the current event, which has not cleared. PHYSICAL EXAMINATION: VITAL SIGNS: Blood pressure was 246/123, pulse was 60, respirations were 20. He was awake, alert, oriented in 3 spheres. He does not appear to be in any apparent distress. HEENT: Normal. HEART: Had a regular rhythm. No murmurs were heard. LUNGS: Were clear. ABDOMEN: Soft, nontender. There was no enlargement of the liver or spleen. SKIN: Free of cutaneous lesions. Pulses were normal. NEUROLOGIC: At least today, he is awake, alert, oriented with clear speech. He has a soft left upper motor neuron facial paresis. Visual eisenberg are full. Eye movements are normal. Ocular fundi are poorly seen. I do not hear any carotid bruits. There is a lot of clumsiness and drift and pronation sign on the left arm and a loss of facility of rapid repetitive motions. On the left leg, he has antigravity strength, but the movements are very slow and deliberate and the left toe sign is extensor. Tone is beginning to come up a little on the left leg compared to the right. Reflexes are a little brisker on the left arm and left leg and there is a trace positive Messi sign. Despite his complaints of numbness, the actual sensory examination reveals no loss of primary modalities such as vibration, light touch, or temperature and there is no sensory neglect. It is clear that this man has had a vascular event in the setting of hyperglycemia and more importantly hypertension. He also has on MRI scan evidence for prior small vessel events deep in the hemisphere. The clinical picture is consistent with a localized deep right hemispheric small vessel event or one involving right pontine perforating vessels and a repeat mri hopefully will define the anatomy Hiis initial MRI was negative, but I still feel he has had a stroke. Up to 7% of MRI scans are negative acutely and this was done within 2 hours of his appearance here and within 3 hours of the onset of symptoms. I am going to order another non contrast MRI withe diffusion imaging study. I agree with the current workup ie managing his hypertension, but keeping some permissive hypertensive levels with systolics no greater than 170 and gradually weaning down. Plavix has been added. He is going to need speech, PT/OT evaluations and eventually his medical care is going to be rendered near his home in [place], [place]. A hypercoagulability screen may be done there at the discretion of the physician who assumes his care. I see no point in doing it here Social service is going to have to get involved about how to get him transferred down there under the care of a physician. Obviously, his lipids need to be managed. His glucose needs to be managed, but all this will be handled by the internists. We are going to check back with him tomorrow. KATE
[2017-01-03] VITALS (16 sets, daily range): BP systolic 157–203; BP diastolic 84–124; PULSE 52–87; TEMP 36.2–37; O2SAT 93–98; BMI 27.9
[2017-01-03 05:23] LABS: HEMATOCRIT 46.7 % (42-52); MEAN CELL VOLUME 83.8 fL (80-100); MEAN CORPUSCULAR HGB CONC 35.8 g/dl (32-36); MEAN PLATELET VOLUME 10.9 fL (7.4-10.4); PLATELET COUNT 338 K/uL (130-400); RED BLOOD COUNT 5.57 M/uL (4.7-6.1); WHITE BLOOD COUNT 8.61 K/uL (4.8-10.8)
[2017-01-03 05:47] LABS: CREATININE 1.36 mg/dl (0.60-1.40); POTASSIUM 3.5 mmol/L (3.5-5.1)
[2017-01-03] MEDS: ATORVASTATIN 40 MG TAB PO SCH (08:38)
[2017-01-03] MEDS: ASPIRIN 81 MG ECTAB PO SCH (08:38)
[2017-01-03] MEDS: INSULIN GLARGINE SOLOSTAR 100 UNITS/ML 3 ML PEN SC SCH ×2 (08:40→21:13)
[2017-01-03] MEDS: INSULIN ASPART 100 UNITS/ML 3 ML PEN SC SCH ×4 (08:40→21:00)
[2017-01-03] MEDS: HydrALAZINE HCL 20 MG/ML VIAL IV. PRN (09:38)
--- NOTE | 2017-01-03 09:42 | DIAGNOSTIC IMAGING REPORT ---
BRAIN WITHOUT CONTRAST CLINICAL HISTORY: 52 years-old Male presenting with cva, acute left hemiparesis. TECHNIQUE: Multisequence, multiplanar MR imaging of the brain was performed without the use of intravenous contrast. IV contrast: None. COMPARISON: CT head performed on 01/02/2017 and MR brain from 01/01/2017. FINDINGS: Ventricles and sulci normal in size. Periventricular and subcortical white matter T2/FLAIR hyperintensity, nonspecific but likely indicative of chronic small vessel ischemic change. Old lacunar infarcts noted in the bilateral basal ganglia. Old right cerebellar hemispheric infarct also suggested. No mass effect or midline shift. Interval development of restricted diffusion in the posterior lateral right thalamus with associated increased FLAIR signal intensity. No extra-axial fluid collection. T2 skull base flow voids preserved. Polypoid mucosal thickening in the maxillary sinuses. Bone marrow signal intensity within the calvarium within normal limits. IMPRESSION: 1. Interval development of acute lacunar infarct in the posterior lateral right thalamus. The presence of increased FLAIR signal intensity suggests an infarct at least 6 hours old. 2. Chronic small vessel ischemic change and multiple small old lacunar infarcts. Electronically signed by: Viraj Fiore M.D. 01/03/2017 9:41 AM Dictated Date/Time: 01/03/2017 9:35 AM
--- NOTE | 2017-01-03 11:45 | ECHOCARDIOGRAM REPORT ---
*NOTICE TO RECEIVING [employer]ENCY This information is strictly Confidential and protected under [place] law. [place] law prohibits you from making any further disclosure of this information unless further disclosure is expressly permitted by the written consent of the person to whom it pertains or is authorized by law. A general authorization for the release of medical or other information is not sufficient for this purpose. Hospital accepts no responsibility if the information is made available to any other person, INCLUDING THE PATIENT. Interpretation Summary * Name: NESTOR NANCE Study Date: 01/02/2017 01:03 PM BP: 184/102 mmHg * Patient Location: [id number] HR: 81 * : 1965 (M/d/yyyy) Gender: Male Height: 72 in * Age: 52 yrs Ethnicity: CA Weight: 207 lb * Ordering Physician: ALFRED FINK DO * Performed By: Ladonna Mcgregor RCS * * Reason For Study: TIA / POSSIBLE STROKE * BSA: 2.2 m2 * -- Conclusions -- * No interatrial shunt present. Procedure Details * Limited views were obtained. * A saline contrast injection was performed to assess for cardiac shunting. * The injection was performed through an intravenous line in the left arm. * The attending nurse who injected the saline contrast was RIANA ADAMS, RN. * A total of 20 cc of agitated saline was given.
[2017-01-03] MEDS ORDERED: LISINOPRIL 20 MG TAB PO SCH (12:00)
[2017-01-03] MEDS: NiCARDipine IV 25 MG in SODIUM CHLORIDE 0.9% 250ML 240 ML IV SCH ×2 (13:17→17:58)
--- NOTE | 2017-01-03 14:53 | Neurology Progress Notes ---
Neurology Progress Note Date of Service Jan 03, 2017. Luis Antonio Ortiz is a 52 year old male with no know PMH - does not follow with a primary care physician and does no take any medications - presents secondary to L sided weakness; L arm numbness/tingling and L leg motor weakness. He had an event 8 days prior to arrival, and the symptoms lasted around 20 minutes. He had having trouble typing with his left hand; it was weak and he was missing the keys. The next morning he developed L sided weakness/numbness/tingling for about 20 minutes and symptoms began to subside, his mother gave him some aspirin to take but that didn't help. He came the the ED for evaluation and was found to have a blood pressure >250/ 100; noted to have blood sugars >300. Head CT was negative. Symptoms resolved, but blood pressure remained high. he has an MRI with no acute finding. That evening he had a return of the left sided numbness, tingling and weakness. UE/ LE the MRI was repeated. He thinks the numbness is improving but he still cant stand on his own or walk. Objective Date Time Temp Pulse Resp B/P (MAP) Pulse Ox O2 Delivery O2 Flow Rate FiO2 01/03/17 13:05 177/101 (126) 01/03/17 12:20 36.8 87 20 203/124 (150) 96 Room Air 01/03/17 12:00 Room Air 01/03/17 08:00 Room Air 01/03/17 07:44 36.7 76 20 173/93 (119) 97 Room Air 01/03/17 06:04 69 183/99 (127) 01/03/17 04:50 36.7 57 18 188/107 (134) 97 Room Air 01/03/17 04:00 Room Air 01/03/17 02:04 58 161/95 (117) 01/03/17 00:47 163/84 (110) 01/03/17 00:00 Room Air 01/02/17 23:19 36.7 59 18 157/87 (110) 96 Room Air 01/02/17 20:17 73 176/87 (116) 01/02/17 20:00 Room Air 01/02/17 18:54 36.7 67 18 161/85 (110) 94 Room Air 01/02/17 17:35 174/88 (116) 01/02/17 16:28 36.7 74 18 173/99 (123) 91 Room Air 01/02/17 16:00 Room Air 01/02/17 14:21 74 175/89 (117) Last 24 Hours Test 01/02/17 16:31 01/02/17 20:32 01/03/17 04:52 01/03/17 06:53 Bedside Glucose 224 mg/dl 185 mg/dl 150 mg/dl White Blood Count 8.61 K/uL Red Blood Count 5.57 M/uL Hemoglobin 16.7 g/dL Hematocrit 46.7 % Mean Corpuscular Volume 83.8 fL Mean Corpuscular Hemoglobin 30.0 pg Mean Corpuscular Hemoglobin Concent 35.8 g/dl RDW Standard Deviation 39.8 fL RDW Coefficient of Variation 13.2 % Platelet Count 338 K/uL Mean Platelet Volume 10.9 fL Sodium Level 140 mmol/L Potassium Level 3.5 mmol/L Chloride Level 104 mmol/L Carbon Dioxide Level 27 mmol/L Anion Gap 9.0 mmol/L Blood Urea Nitrogen 16 mg/dl Creatinine 1.36 mg/dl Est Creatinine Clear Calc Drug Dose 74.9 ml/min Estimated GFR () 68.4 Estimated GFR (Non- 59.0 BUN/Creatinine Ratio 12.0 Random Glucose 149 mg/dl Calcium Level 9.0 mg/dl Test 01/03/17 07:56 Uric Acid 7.3 mg/dl Total Bilirubin 1.4 mg/dl Direct Bilirubin 0.3 mg/dl Aspartate Amino Transf (AST/SGOT) 23 U/L Alanine Aminotransferase (ALT/SGPT) 31 U/L Alkaline Phosphatase 98 U/L Total Protein 8.1 gm/dl Albumin 4.2 gm/dl Imaging: MRI brain -01/01- . Chronic small vessel ischemic change and old lacunar infarcts in the basal ganglia. No acute intracranial abnormality. MRI brain - 01/03Interval development of acute lacunar infarct in the posterior lateral right thalamus. The presence of increased FLAIR signal intensity suggests an infarct at least 6 hours old. Chronic small vessel ischemic change and multiple small old lacunar infarcts. Exam: Physical Exam: Constitutional: appearance nourished, healthy and normal Ears, Nose, Mouth and Throat: mucous membranes moist, no injection and skin normal, eyes normal Cardiovascular: normal S-1 and S-2 and regular rate and rhythm Respiratory: clear to auscultation (CTA) and no rales, rhonchi or wheeze Musculoskeletal: no peripheral edema and good distal pulses Skin: no stigmata of neurocutaneous disease noted and normal and intact Eyes: extraocular muscles intact (EOMI) and pupils equal, round and reactive to light (PERRL) NEUROLOGIC EXAMINATION: Mental status: Alert and interactive Oriented [facility], president Maame, Oriented to person Speech Cranial Nerves left flattening nasolabial fold eye brow raise symmetric Reflexes: Deep tendon reflexes were symmetrical right slightly hyperreflexic on the left Sensory: no deficit to cool or vibration Coordination: finger to nose clumsy on left arm and leg Gait/Stance: Posture sitting up in bed Motor: pronator drift of out stretched arms with eyes closed on left Strength: Right biceps triceps deltoids 5/5, left biceps triceps 5/5, 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 intrinsics 4/5, hip flex left 4/5, plantar flex ext 4/5, R hip flex plantar flex ext 5/5 Current Inpatient Medications Medications (Trade) Dose Ordered Sig/Will Route Start Time Stop Time Status Last Admin Dose Admin Nicardipine HCl 25 mg/Sodium Chloride 250 ml @ 0 mls/hr Q0M IV 01/01/17 11:51 01/31/17 11:50 01/03/17 13:17 25 MLS/HR Enoxaparin Sodium (Lovenox Inj) 40 mg Q24H SC 01/01/17 16:00 01/31/17 15:59 01/02/17 17:24 40 MG Acetaminophen (Tylenol Tab) 650 mg Q4H PRN PO 01/01/17 12:15 01/31/17 12:14 Nitroglycerin (Nitrostat Tab) 0.4 mg UD PRN SL 01/01/17 12:15 01/31/17 12:14 Insulin Aspart (novoLOG ASPART) SLIDING SCALE If C... ACHS SC 01/01/17 16:00 01/31/17 15:59 01/03/17 13:17 4 UNITS Glucose (Glucose 40% Gel) 15-30 GRAMS 15 GRAMS... UD PRN PO 01/01/17 12:15 01/31/17 12:14 Glucose (Glucose Chew Tab) 4-8 Tablets 4 Tabl... UD PRN PO 01/01/17 12:15 01/31/17 12:14 Dextrose (Dextrose 50% 50ML Syringe) 25-50ML OF 50% DW IV FOR... UD PRN IV 01/01/17 12:15 01/31/17 12:14 Glucagon (Glucagon Inj) 1 mg UD PRN SQ 01/01/17 12:15 01/31/17 12:14 Atorvastatin Calcium (Lipitor Tab) 40 mg QAM PO 01/02/17 09:00 02/01/17 08:59 01/03/17 08:38 40 MG Aspirin (Ecotrin Tab) 81 mg QAM PO 01/02/17 09:00 02/01/17 08:59 01/03/17 08:38 81 MG Gadobutrol (Gadavist) 9.5 mmol UD PRN IV 01/01/17 15:30 01/05/17 15:29 Insulin Glargine (Lantus Solostar Pen) 10 units Q12 SC 01/01/17 21:00 01/31/17 20:59 01/03/17 08:40 10 UNITS Ondansetron HCl (Zofran Inj) 4 mg Q4H PRN IV 01/01/17 17:30 01/31/17 17:29 01/01/17 20:22 4 MG Hydralazine HCl (HydrALAZINE INJ) 10 mg Q6 PRN IV. 01/02/17 02:45 02/01/17 02:44 01/03/17 09:38 10 MG Fluoxetine HCl (Prozac Cap) 20 mg QAM PO 01/04/17 09:00 02/03/17 08:59 Lisinopril (Zestril Tab) 20 mg QAM PO 01/03/17 12:00 02/02/17 11:59 01/03/17 13:16 20 MG Impression 52 year old male s/p right posterior lateral thalamus Plan 1. permissive hypertension and then slowly wean down 2. cardiology for recommendations with possible amyloid vs long time blood pressure enlargement 3. optimize DL, DM 4. PT/OT speech for discharge needs 5. not clear where he will having his physical therapy may have in area do to parents and brother live here 6. Plavix 75 mg daily and aspirin 81 mg daily x 3 months and then aspirin for a lifetime unless other cardiac reasons to be on other therapy 7. will need to follow up with PCP and neurology at home once out of rehab 8. amyloid and hypercoag workup ordered. part of work up will need to wait until after off lovenox I have seen and discussed above patient with Dr Fernandez Skinner, neurology Patient is indeed better than yesterday but still with a significant left hemiparesis and has a deep right perithalamic small vessel event He is being seen by cardiology and a hypercoagulable workup is being started as he might actually stay in [place] for rehab depending upon the final arrangements. Bp and glucose being managed and statins being started We recommend only dual antiplatelet fx for now as the event clinically is a primary small vessel one and unlikely to be embolic we will follow up tomorrow Fernandez Skinner MD
[2017-01-03] MEDS ORDERED: CLOPIDOGREL BISULFATE 75 MG TAB PO ONE (15:00)
[2017-01-03] MEDS: ENOXAPARIN 40 MG/0.4 ML SYR SC SCH (15:59)
[2017-01-03] MEDS ORDERED: AMLODIPINE BESYLATE 5 MG TAB PO ONE (17:15)
--- NOTE | 2017-01-03 17:33 | Progress Note ---
Medicine Progress Note Date & Time of Visit: Jan 03, 2017 at 17:33. Subjective Patient is seems to be improving clinically, but has had many different medical conditions diagnosed this admission and is understandably overwhelmed by the amount of health issues. He seems to have more strength in his left sided extremities but is not back to baseline yet. He continues to feel paresthesias and numbness on his left side and also has had some myoclonic jerks. Overnight had a short run of non sustained V tach. Has been on the nicardepine drip intermittently. Discussed with the patient, his parents, and via phone with his brother in law Dr. Abelino Ling. Objective Last 8 Hrs Date Time Temp Pulse Resp B/P (MAP) Pulse Ox O2 Delivery O2 Flow Rate FiO2 01/03/17 16:37 36.2 85 20 194/108 (136) 95 Room Air 01/03/17 16:31 Room Air 01/03/17 15:35 36.9 82 20 168/92 (117) 93 Room Air 01/03/17 15:15 37.0 85 20 184/102 (129) 94 Room Air 01/03/17 13:05 177/101 (126) 01/03/17 12:20 36.8 87 20 203/124 (150) 96 Room Air 01/03/17 12:00 Room Air Physical Exam: GENERAL: Patient is in no acute distress. HEENT: No acute trauma, normocephalic atraumatic, mucous membranes moist, no nasal congestion, no scleral icterus. Conjunctivae clear NECK: No stridor, trachea is midline. LUNGS: Clear to auscultation bilaterally, no wheeze, no rhonchi, breath sounds equal. HEART: Without murmurs gallops or rubs, regular rate and rhythm. ABDOMEN: Soft, nontender, bowel sounds positive, no hepatosplenomegaly EXTREMITIES: No cyanosis or edema, LUE -3/5, LLE -3/5 NEUROLOGIC: Oriented x 3, no acute motor or sensory deficits, no focal weakness. Slight left flattened NL fold SKIN: No rash, no jaundice, no diaphoresis. Laboratory Results: Last 24 Hours Test 01/02/17 20:32 01/03/17 04:52 01/03/17 06:53 01/03/17 07:56 Bedside Glucose 185 mg/dl 150 mg/dl White Blood Count 8.61 K/uL Red Blood Count 5.57 M/uL Hemoglobin 16.7 g/dL Hematocrit 46.7 % Mean Corpuscular Volume 83.8 fL Mean Corpuscular Hemoglobin 30.0 pg Mean Corpuscular Hemoglobin Concent 35.8 g/dl RDW Standard Deviation 39.8 fL RDW Coefficient of Variation 13.2 % Platelet Count 338 K/uL Mean Platelet Volume 10.9 fL Sodium Level 140 mmol/L Potassium Level 3.5 mmol/L Chloride Level 104 mmol/L Carbon Dioxide Level 27 mmol/L Anion Gap 9.0 mmol/L Blood Urea Nitrogen 16 mg/dl Creatinine 1.36 mg/dl Est Creatinine Clear Calc Drug Dose 74.9 ml/min Estimated GFR () 68.4 Estimated GFR (Non- 59.0 BUN/Creatinine Ratio 12.0 Random Glucose 149 mg/dl Calcium Level 9.0 mg/dl Uric Acid 7.3 mg/dl Total Bilirubin 1.4 mg/dl Direct Bilirubin 0.3 mg/dl Aspartate Amino Transf (AST/SGOT) 23 U/L Alanine Aminotransferase (ALT/SGPT) 31 U/L Alkaline Phosphatase 98 U/L Total Protein 8.1 gm/dl Albumin 4.2 gm/dl Test 01/03/17 15:56 Bedside Glucose 143 mg/dl Assessment & Plan ACUTE CVA: LEFT SIDED WEAKNESS: -initial CT head negative, a repeat CT head ordered -initial MRI showed old bilateral basal ganglia lacunar infarcts; second MRI brain today shows new right thalamic lacunar infarct which was not present on the initial MRI -MRA did not show any large vessel stenosis -presented with left side extremity weakness and paresthesias which were intermittent, however per records the patient has had complete weakness of his left side that did not resolve and continues to persist. He also appears to have a slight left facial droop. 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 -hypercoagulable workup underway, unable to complete entire workup due to patient being on lovenox; labs pending POSSIBLE AMYLOID DEPOSITS ON TTE: -fat pad biopsy ordered -immunofixation, immunoglobulin IgG, serum and protein electrophoresis, light chains ordered and pending; send out tests will need to be followed up on -Cardiology consulted -Rheumatology consulted HYPERTENSIVE URGENCY: -SBP 260s/100s on presentation to the ER -received Hydralazine and Labetalol in the ER without significant improvement, but avoiding aggressive treatment given possibility of stroke -most likely long-standing uncontrolled HTN due to LVH changes on EKG and tortuous internal carotid artery on MRA -TTE pending -on nicardipine drip intermittently; would like to now wean off the drip and transition to PO meds -started lisinopril + metoprolol, can consider adding HCTZ as well depending on response to medications NEWLY DISCOVERED DM TYPE II: -HbA1c: 10.2% -started on Lantus 5 units BID + correction scale insulin -will need insulin on discharge -will consult Diabetes education -should be started on SERGEY-I prior to discharge DYSLIPIDEMIA: -Newly diagnosed; LDL 247, Total 339 -started on statin on admission -may need higher dose initially Current Inpatient Medications: Current Inpatient Medications Medications (Trade) Dose Ordered Sig/Will Route Start Time Stop Time Status Last Admin Dose Admin Nicardipine HCl 25 mg/Sodium Chloride 250 ml @ 0 mls/hr Q0M IV 01/01/17 11:51 01/31/17 11:50 01/03/17 13:17 25 MLS/HR Enoxaparin Sodium (Lovenox Inj) 40 mg Q24H SC 01/01/17 16:00 01/31/17 15:59 01/03/17 15:59 40 MG Acetaminophen (Tylenol Tab) 650 mg Q4H PRN PO 01/01/17 12:15 01/31/17 12:14 Nitroglycerin (Nitrostat Tab) 0.4 mg UD PRN SL 01/01/17 12:15 01/31/17 12:14 Insulin Aspart (novoLOG ASPART) SLIDING SCALE If C... ACHS SC 01/01/17 16:00 01/31/17 15:59 01/03/17 16:15 2 UNITS Glucose (Glucose 40% Gel) 15-30 GRAMS 15 GRAMS... UD PRN PO 01/01/17 12:15 01/31/17 12:14 Glucose (Glucose Chew Tab) 4-8 Tablets 4 Tabl... UD PRN PO 01/01/17 12:15 01/31/17 12:14 Dextrose (Dextrose 50% 50ML Syringe) 25-50ML OF 50% DW IV FOR... UD PRN IV 01/01/17 12:15 01/31/17 12:14 Glucagon (Glucagon Inj) 1 mg UD PRN SQ 01/01/17 12:15 01/31/17 12:14 Atorvastatin Calcium (Lipitor Tab) 40 mg QAM PO 01/02/17 09:00 02/01/17 08:59 01/03/17 08:38 40 MG Aspirin (Ecotrin Tab) 81 mg QAM PO 01/02/17 09:00 02/01/17 08:59 01/03/17 08:38 81 MG Gadobutrol (Gadavist) 9.5 mmol UD PRN IV 01/01/17 15:30 01/05/17 15:29 Insulin Glargine (Lantus Solostar Pen) 10 units Q12 SC 01/01/17 21:00 01/31/17 20:59 01/03/17 08:40 10 UNITS Ondansetron HCl (Zofran Inj) 4 mg Q4H PRN IV 01/01/17 17:30 01/31/17 17:29 01/01/17 20:22 4 MG Hydralazine HCl (HydrALAZINE INJ) 10 mg Q6 PRN IV. 01/02/17 02:45 02/01/17 02:44 01/03/17 09:38 10 MG Fluoxetine HCl (Prozac Cap) 20 mg QAM PO 01/04/17 09:00 02/03/17 08:59 Clopidogrel Bisulfate (plAVix TAB) 75 mg QAM PO 01/04/17 09:00 02/03/17 08:59 Lisinopril (Zestril Tab) 40 mg QAM PO 01/04/17 09:00 02/03/17 08:59
[2017-01-03] MEDS: METOPROLOL TARTRATE 25 MG TAB PO SCH (21:11)
[2017-01-04] VITALS (10 sets, daily range): BP systolic 145–193; BP diastolic 72–102; PULSE 57–76; TEMP 36.6–36.9; O2SAT 94–98; Ht 182.9 cm; Wt 93.5 kg
[2017-01-04] MEDS: HydrALAZINE HCL 20 MG/ML VIAL IV. PRN (03:32)
[2017-01-04 07:17] LABS: HEMATOCRIT 46.6 % (42-52); MEAN CORPUSCULAR HEMOGLOBIN 30.6 pg (25-34); MEAN CORPUSCULAR HGB CONC 36.5 g/dl (32-36); MEAN PLATELET VOLUME 10.6 fL (7.4-10.4); PLATELET COUNT 342 K/uL (130-400); RED BLOOD COUNT 5.55 M/uL (4.7-6.1); WHITE BLOOD COUNT 8.22 K/uL (4.8-10.8)
[2017-01-04 07:46] LABS: CREATININE 1.45 mg/dl (0.60-1.40)
[2017-01-04] MEDS: INSULIN GLARGINE SOLOSTAR 100 UNITS/ML 3 ML PEN SC SCH ×2 (08:09→21:23)
[2017-01-04] MEDS: INSULIN ASPART 100 UNITS/ML 3 ML PEN SC SCH ×4 (08:09→21:00)
[2017-01-04] MEDS: LISINOPRIL 40 MG TAB PO SCH (08:10)
[2017-01-04] MEDS: FLUOXETINE HCL 20 MG CAP PO SCH (08:10)
[2017-01-04] MEDS: METOPROLOL TARTRATE 25 MG TAB PO SCH ×2 (08:10→21:17)
[2017-01-04] MEDS: ATORVASTATIN 40 MG TAB PO SCH (08:10)
[2017-01-04] MEDS: ASPIRIN 81 MG ECTAB PO SCH (08:10)
[2017-01-04] MEDS: CLOPIDOGREL BISULFATE 75 MG TAB PO SCH (08:11)
--- NOTE | 2017-01-04 09:49 | Progress Note ---
Subjective Date of Service: Jan 04, 2017. Subjective Pt evaluation today including: conversation w/ patient, physical exam, lab review, review of studies, review of inpatient medication list Saw/examined the patient in room 243 Improving his left upper extremity strength. Can move his LLE; but still has numbness/tingling and motor weakness of L foot. Denies chest pain/shortness of breath, denies fevers/chills/nausea/vomiting/ diarrhea Problem List Medical Problems: (1) Hypertensive urgency Status: Acute Review of Systems Constitutional: No fever, No chills Respiratory: No cough, No sputum, No shortness of breath Cardiac: No chest pain, No palpitations Abdomen: No pain, No nausea, No vomiting, No diarrhea, No constipation, No GI bleeding Neurologic: + weakness, + numbness/tingling, No memory loss, No vertigo, No balance problems Medications Current Inpatient Medications Medications (Trade) Dose Ordered Sig/Will Route Start Time Stop Time Status Last Admin Dose Admin Nicardipine HCl 25 mg/Sodium Chloride 250 ml @ 0 mls/hr Q0M IV 01/01/17 11:51 01/31/17 11:50 01/03/17 17:58 25 MLS/HR Enoxaparin Sodium (Lovenox Inj) 40 mg Q24H SC 01/01/17 16:00 01/31/17 15:59 01/03/17 15:59 40 MG Acetaminophen (Tylenol Tab) 650 mg Q4H PRN PO 01/01/17 12:15 01/31/17 12:14 Nitroglycerin (Nitrostat Tab) 0.4 mg UD PRN SL 01/01/17 12:15 01/31/17 12:14 Insulin Aspart (novoLOG ASPART) SLIDING SCALE If C... ACHS SC 01/01/17 16:00 01/31/17 15:59 01/04/17 08:09 6 UNITS Glucose (Glucose 40% Gel) 15-30 GRAMS 15 GRAMS... UD PRN PO 01/01/17 12:15 01/31/17 12:14 Glucose (Glucose Chew Tab) 4-8 Tablets 4 Tabl... UD PRN PO 01/01/17 12:15 01/31/17 12:14 Dextrose (Dextrose 50% 50ML Syringe) 25-50ML OF 50% DW IV FOR... UD PRN IV 01/01/17 12:15 01/31/17 12:14 Glucagon (Glucagon Inj) 1 mg UD PRN SQ 01/01/17 12:15 01/31/17 12:14 Atorvastatin Calcium (Lipitor Tab) 40 mg QAM PO 01/02/17 09:00 02/01/17 08:59 01/04/17 08:10 40 MG Aspirin (Ecotrin Tab) 81 mg QAM PO 01/02/17 09:00 02/01/17 08:59 01/04/17 08:10 81 MG Gadobutrol (Gadavist) 9.5 mmol UD PRN IV 01/01/17 15:30 01/05/17 15:29 Insulin Glargine (Lantus Solostar Pen) 10 units Q12 SC 01/01/17 21:00 01/31/17 20:59 01/04/17 08:09 10 UNITS Ondansetron HCl (Zofran Inj) 4 mg Q4H PRN IV 01/01/17 17:30 01/31/17 17:29 01/01/17 20:22 4 MG Hydralazine HCl (HydrALAZINE INJ) 10 mg Q6 PRN IV. 01/02/17 02:45 02/01/17 02:44 01/04/17 03:32 10 MG Fluoxetine HCl (Prozac Cap) 20 mg QAM PO 01/04/17 09:00 02/03/17 08:59 01/04/17 08:10 20 MG Clopidogrel Bisulfate (plAVix TAB) 75 mg QAM PO 01/04/17 09:00 02/03/17 08:59 01/04/17 08:11 75 MG Lisinopril (Zestril Tab) 40 mg QAM PO 01/04/17 09:00 02/03/17 08:59 01/04/17 08:10 40 MG Metoprolol Tartrate (Lopressor Tab) 12.5 mg BID PO 01/03/17 21:00 02/02/17 20:59 01/04/17 08:10 12.5 MG Objective Vital Signs Date Time Temp Pulse Resp B/P (MAP) Pulse Ox O2 Delivery O2 Flow Rate FiO2 01/04/17 08:18 36.8 70 18 150/91 (110) 95 01/04/17 08:00 Room Air 01/04/17 04:18 69 145/81 (102) 01/04/17 04:01 95 Room Air 01/04/17 03:18 36.8 60 18 193/92 (125) 96 Room Air 01/04/17 00:00 94 Room Air 01/03/17 23:09 36.6 52 18 163/95 (117) 96 Room Air 01/03/17 21:57 60 166/92 (116) 01/03/17 20:22 36.6 69 18 160/92 (114) 95 Room Air 01/03/17 20:00 98 Room Air 01/03/17 17:30 174/99 (124) 01/03/17 16:37 36.2 85 20 194/108 (136) 95 Room Air 01/03/17 16:31 Room Air 01/03/17 15:35 36.9 82 20 168/92 (117) 93 Room Air 01/03/17 15:15 37.0 85 20 184/102 (129) 94 Room Air 01/03/17 13:05 177/101 (126) 01/03/17 12:20 36.8 87 20 203/124 (150) 96 Room Air 01/03/17 12:00 Room Air Physical Exam General Appearance: no apparent distress Neck: supple Respiratory/Chest: lungs clear, normal breath sounds, no respiratory distress, no accessory muscle use Cardiovascular: regular rate, rhythm, no edema, no murmur Abdomen: normal bowel sounds, non tender, soft Neurologic/Psychiatric: alert, + motor weakness (Left sided weakness) Skin: normal color Laboratory Results Last 24 Hours Test 01/03/17 11:27 01/03/17 15:56 01/03/17 21:03 01/04/17 00:00 Bedside Glucose 188 mg/dl 143 mg/dl 175 mg/dl Test 01/04/17 07:02 White Blood Count 8.22 K/uL Red Blood Count 5.55 M/uL Hemoglobin 17.0 g/dL Hematocrit 46.6 % Mean Corpuscular Volume 84.0 fL Mean Corpuscular Hemoglobin 30.6 pg Mean Corpuscular Hemoglobin Concent 36.5 g/dl RDW Standard Deviation 40.0 fL RDW Coefficient of Variation 13.1 % Platelet Count 342 K/uL Mean Platelet Volume 10.6 fL Creatinine 1.45 mg/dl Est Creatinine Clear Calc Drug Dose 64.7 ml/min Estimated GFR () 63.3 Estimated GFR (Non- 54.6 Assessment and Plan This is a 52 year old male with no past medical history presented with L sided numbness/tingling/weakness Acute CVA patient presented with L sided arm and leg numbness/tingling and motor weakness which has been intermittent initial Head CT and MRI were negative for acute processes (old lacunar infarct seen) repeat Head CT also negative, but due to persistent symptoms a repeat Brain MRI was performed showing an acute lacunar stroke likely due to malignant HTN as above started aspirin 81mg, Plavix 75mg x3 months, then just aspirin PT/OT/speech appreciate neurology input 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 consulted cardiology - as of now, BP control, will await consultation for further recommendations fat pad biopsy pending rheumatology consulted Hypertensive Urgency patient presented with SBP >250/100 given Hydralazine, Labetalol in the ED with little change in blood pressure this seems like long-standing uncontrolled HTN due to LVH changes on EKG and echo initially started on nicardipine drip at 5mg/hr initially - goal reduction should be slow; ~ 180-190 SBP in 24 hours currently off of the drip, now started on Lisinopril 40mg, Amlodipine 5mg and Metoprolol - will adjust medications accordingly New Diagnosis of DM2 Ha1c = 10.2% started patient on Lantus 5 units BID and a sliding scale will likely need insulin on discharge started on Lisinopril started on aspirin 81mg and Lipitor diabetic education consulted Hyperlipidemia total cholesterol > 300 LDL ~ 240 started on Lipitor 40mg for now recheck lipid panel in 3 months and adjust medications accordingly DVT ppx Lovenox FULL CODE
--- NOTE | 2017-01-04 10:52 | Cardiology Consultation ---
Cardiology Consultation Date of Consultation: Jan 04, 2017 Requesting Physician: August Attending File System Installer: Fermín Sanchez (Alden Linn PA-C) History of Present Illness Mr. Angel Trejo is a 52 year old male who was visiting from [place], [place] for the [facility] Football Game on Tuesday. He presented to [facility] on January 01, 2017 with left sided weakness, stroke like symptoms. Initial head CT was negative. Initial MRI showed old bilateral basal ganglia lacunar infarcts. A second MRI brain revealed a new right thalamic lacunar infarct which was not present on the initial MRI. Blood pressure was marked elevated on presentation, 260/126. Resting echocardiography is summarized below, leading to today's Cardiology consultation due to concern for possible cardiac amyloidosis. Neurology and Rheumatology have been consulted. Hypercoagulable workup and evaluation for possible amyloid via fat pad biopsy have been requested by the Hospitalist. Additional notable findings included marked dyslipidemia with LDL of 247 mg/dL as well as newly discovered type II diabetes mellitus (HgA1c 10.2%). He has been treated with ASA, Clopidogrel, moderate intensity statin (atorvastatin 40 mg/day), and antihypertensive therapies including hydralazine and labetalol followed by nicardipine initially, now lisinopril and metoprolol. He also received one dose of amlodipine on 01/03/2017 Mr. Trejo notes improvement in the left sided weakness. He continues to have paresthesias of the left extremities. He also appears to have a slight left facial droop. Mr. Trejo denies prior cardiac history. He specifically denies history of WI, CAD, CHF, arrhythmias, heart murmur, Rheumatic fever, or scarlet. In the remote past he monitored his blood pressure at home, without reported hypertension (more than 10 years ago). He notes that his last contact with a medical provider was for a work related physical in 1996. Mr. Trejo denies chest pain or discomfort. He denies palpitations. He denies shortness of breath or dyspnea on exertion. No issues with near syncope or syncope. No decreased appetite, early satiety, significant weight loss, fevers, chills, or night sweats. No mysterious lumps or bumps. No cough, abdominal bloating, scrotal/penile edema, orthopnea, PND, or lower extremity peripheral edema. Since the CVA he has experienced dizziness with changes in position. (Alden Linn PA-C) Past Medical/Surgical History Problem List: No Past Medical History. Past Surgical History only includes a root canal under local approximately 15 years ago. (Alden Linn PA-C) Family History Mother is alive and well, age 79. She lives at [place] at [facility] with her who is alive and well at age 84. No cardiac history in his mother or father other than his mother being diagnosed with hypertension at the age of 54. He has a maternal aunt with diabetes mellitus. He has one brother who lives in [place]; he is an active runner who is without cardiac history. (Alden Linn PA-C) Hypertension (Fermín Sanchez D.Shari) Social History Livelong nonsmoker. No smokeless tobacco use/abuse. Social alcohol only. No illegal drug use. . One 14 year old daughter. Lives near [place], [place]. 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 Brother in law is a physician at [employer]. (Alden Linn PA-C) Review Of Systems General: ? 5-6 pound weight change. No fever, chills, or night sweats. HEENT: Denies headache. Denies head trauma. Glasses. No visual changes. No amaurosis fugax. See above. Cardiovascular: Denies chest pain or chest discomfort, dyspnea on exertion, palpitations, orthopnea, PND, edema, spontaneous shortness of breath, near syncope, or syncope. Pulmonary: No cough. No history of asthma, emphysema, or COPD. No hemoptysis. No history of sleep apnea. Gastrointestinal: Denies nausea, vomiting, diarrhea, constipation, bloating, melena, or hematochezia. Skin: No rash. Musculoskeletal: No recent injuries. No significant myalgias or arthralgias. Neurological: No history of seizures Complete review of systems is as stated above, negative, or noncontributory. (Alden Linn PA-C) Allergies Coded Allergies: No Known Allergies (Unverified , 01/01/17) Medications Reported Home Medications Medications Dose Route/Sig Max Daily Dose Days Date Category Aspirin Ec (Aspirin) 81 Mg Tab 1 Dose PO UD PRN 01/01/17 Reported (Alden Linn PA-C) Physical Exam Vital Signs (Last 8hrs): Last 8 Hrs Date Time Temp Pulse Resp B/P (MAP) Pulse Ox O2 Delivery O2 Flow Rate FiO2 01/04/17 08:18 36.8 70 18 150/91 (110) 95 01/04/17 08:00 Room Air 01/04/17 04:18 69 145/81 (102) 01/04/17 04:01 95 Room Air 01/04/17 03:18 36.8 60 18 193/92 (125) 96 Room Air General: Alert and Oriented x3. NAD. HEENT: Normocephalic Atraumatic. PER, EOMI, conjunctiva and sclera clear Neck: Supple. No carotid bruits. No overt JVD. Respiratory: Breath sounds clear to auscultation bilaterally. No wheezes, rales , or rhonchi. Cardiovascular: RRR. Soft systolic murmur at the LLSB. No diastolic murmur. No rub. No gallops. PMI is not displaced. Abdomen: +BS. No abdominal bruits. Soft. Nontender. Extremities: No edema. No clubbing. No cyanosis. Distal pulses are 2/4 bilaterally, radially and posterior tibial regions. Neuro: Left sided weakness. Slight left sided facial droop. Psychiatric: Normal affect. (Alden Linn PA-C) Data Last 24 Hours Test 01/03/17 11:27 01/03/17 15:56 01/03/17 21:03 01/04/17 00:00 Bedside Glucose 188 mg/dl 143 mg/dl 175 mg/dl Test 01/04/17 07:02 White Blood Count 8.22 K/uL Red Blood Count 5.55 M/uL Hemoglobin 17.0 g/dL Hematocrit 46.6 % Mean Corpuscular Volume 84.0 fL Mean Corpuscular Hemoglobin 30.6 pg Mean Corpuscular Hemoglobin Concent 36.5 g/dl RDW Standard Deviation 40.0 fL RDW Coefficient of Variation 13.1 % Platelet Count 342 K/uL Mean Platelet Volume 10.6 fL Creatinine 1.45 mg/dl Est Creatinine Clear Calc Drug Dose 64.7 ml/min Estimated GFR () 63.3 Estimated GFR (Non- 54.6 CXR, Head CT x 2, Neck MRA, Head MRA, and Brain MRI x 2 reviewed. EKG dated and timed 01-JAN-2017 @ 10:11:49: Normal sinus rhythm at 74 bpm. Left ventricular hypertrophy with repolarization abnormality. EKG dated and timed 02-JAN-2017 @ 04:09:02: Normal sinus rhythm at 77 bpm. Left ventricular hypertrophy with repolarization abnormality. When compared with ECG of 01-JAN-2017 10:11, no significant change was found. EKG dated and timed 02-JAN-2017 @ 09:03:03: Sinus rhythm with premature atrial complexes at [address] & T wave abnormality, consider anterolateral ischemia vs LVH. QT/QTc 422/471 ms. When compared with ECG of 02-JAN-2017 06:37, premature atrial complexes are now present. EKG dated and timed 03-JAN-2017 @ 06:15:59: Normal sinus rhythm at 63 bpm. Left atrial enlargement. Left ventricular hypertrophy with repolarization abnormality. When compared with ECG of 02-JAN-2017 09:03, premature atrial complexes are no longer present. January 01, 2017 TTE Interpretation Summary ([facility], Dr. Fermín Sanchez): Normal LV chamber size with severe concentric LVH, speckling pattern suggestive of amyloid cardiomyopathy. Normal LV systolic function, EF 60 -65%. No segmental left ventricular wall motion abnormalities are noted. Grade I diastolic dysfunction. There is mild right ventricular hypertrophy. No significant valvular pathology. Moderate left atrial enlargement. January 02, 2017 TTE Interpretation Summary ([facility], Dr. Fermín Sanchez): No interatrial shunt present. Telemetry: Sinus. Atrial tachycardia versus SVT on 01/02/2017 at 18:14:11. 9 beat run of wide complex tachycardia consistent with VT on 01/03/2017 at 02:01: 07. 7 beat run of wide complex tachycardia consistent with VT on 01/03/2017 at 18:31:39. Bradycardia down to 43 bpm. PAC's, rarely in a pattery of bigeminy. (Alden Linn PA-C) Assessment & Plan Mr. Trejo is a 52 year old male who was admitted to [facility] on January 01, 2017 with an acute cerebrovascular accident. Marked hypertension observed on admission (see above). Cardiology consultation was requested late in the evening on January 03, 2017 after resting echocardiography revealed severe concentric left ventricular hypertrophy with a speckling pattern suggestive of amyloid cardiomyopathy. History by the undersigned reveals that he does not have the typical presenting clinical manifestations suggestive of amyloid cardiomyopathy which is most commonly heart failure. I suspect the echocardiographic findings are reflective of hypertensive heart disease due to longstanding uncontrolled hypertension. His blood pressure has come under much better control with the agents prescribed with his last two readings reported as 145/81 and 150/91. Given the observed nonsustained asymptomatic wide complex tachycardia consistent with nonsustained ventricular tachycardia recommend continuation of beta-chintan therapy however if additional blood pressure control is needed would consider changing from metoprolol tartrate to carvedilol. Electrolytes should be maintained. Amlodipine may be a future antihypertensive option. I would recommend avoiding restarting nicardipine and avoiding the use of as needed hydralazine. The extremely elevated LDL level raises concern for familial hypercholesterolemia with recommendation to intensity statin therapy (switch atorvastatin 40 mg/day to rosuvastatin 40 mg/day) as well as consider future genetic testing as an outpatient. I see no cardiac indication for initiation of anticoagulation at this point. Further recommendations pending discussion and evaluation by Dr. Sanchez as well as his ongoing hospital course. (Alden Linn PA-C) Cardiology attending: Pt seen and examined, agree with findings and assessment as per Alden Crane. Patient presented with CVA appearance, found to be severely hypertensive with severe concentric LVH. Fat pad biopsy to evaluate for amyloidosis performed. BP improved. Follow med recommendations as above. Will likely also require outpatient genetic testing for familial hyperlipidemia. (Fermín Sanchez D.O.)
[2017-01-04 11:31] LABS: BUN/CREATININE RATIO 14.5 (10-20); CALCIUM 9.3 mg/dl (8.5-10.1); CREATININE 1.47 mg/dl (0.60-1.40); MAGNESIUM 2.4 mg/dl (1.8-2.4); POTASSIUM 3.7 mmol/L (3.5-5.1)
--- NOTE | 2017-01-04 15:48 | Neurology Progress Notes ---
Neurology Progress Note Date of Service Jan 04, 2017. Luis Antonio Ortiz is a 52 year old male with no know PMH - does not follow with a primary care physician and does no take any medications - presents secondary to L sided weakness; L arm numbness/tingling and L leg motor weakness. He had an event 8 days prior to arrival, and the symptoms lasted around 20 minutes. He had having trouble typing with his left hand; it was weak and he was missing the keys. The next morning he developed L sided weakness/numbness/tingling for about 20 minutes and symptoms began to subside, his mother gave him some aspirin to take but that didn't help. He came the the ED for evaluation and was found to have a blood pressure >250/ 100; noted to have blood sugars >300. Head CT was negative. Symptoms resolved, but blood pressure remained high. he has an MRI with no acute finding. That evening he had a return of the left sided numbness, tingling and weakness. UE/ LE the MRI was repeated. Today thinks the numbness is improving he has been up out of bed walking with walker. denies CP, SOB, abdominal pain. Objective Date Time Temp Pulse Resp B/P (MAP) Pulse Ox O2 Delivery O2 Flow Rate FiO2 01/04/17 12:05 36.8 76 18 148/72 (97) 98 01/04/17 12:00 Room Air 01/04/17 08:18 36.8 70 18 150/91 (110) 95 01/04/17 08:00 Room Air 01/04/17 04:18 69 145/81 (102) 01/04/17 04:01 95 Room Air 01/04/17 03:18 36.8 60 18 193/92 (125) 96 Room Air 01/04/17 00:00 94 Room Air 01/03/17 23:09 36.6 52 18 163/95 (117) 96 Room Air 01/03/17 21:57 60 166/92 (116) 01/03/17 20:22 36.6 69 18 160/92 (114) 95 Room Air 01/03/17 20:00 98 Room Air 01/03/17 17:30 174/99 (124) 01/03/17 16:37 36.2 85 20 194/108 (136) 95 Room Air 01/03/17 16:31 Room Air Last 24 Hours Test 01/03/17 15:56 01/03/17 21:03 01/04/17 00:00 01/04/17 07:02 Bedside Glucose 143 mg/dl 175 mg/dl White Blood Count 8.22 K/uL Red Blood Count 5.55 M/uL Hemoglobin 17.0 g/dL Hematocrit 46.6 % Mean Corpuscular Volume 84.0 fL Mean Corpuscular Hemoglobin 30.6 pg Mean Corpuscular Hemoglobin Concent 36.5 g/dl RDW Standard Deviation 40.0 fL RDW Coefficient of Variation 13.1 % Platelet Count 342 K/uL Mean Platelet Volume 10.6 fL Sodium Level 142 mmol/L Potassium Level 3.7 mmol/L Chloride Level 103 mmol/L Carbon Dioxide Level 28 mmol/L Anion Gap 11.0 mmol/L Blood Urea Nitrogen 21 mg/dl Creatinine 1.47 mg/dl Est Creatinine Clear Calc Drug Dose 63.8 ml/min Estimated GFR () 62.2 Estimated GFR (Non- 53.7 BUN/Creatinine Ratio 14.5 Random Glucose 174 mg/dl Calcium Level 9.3 mg/dl Magnesium Level 2.4 mg/dl Test 01/04/17 08:05 01/04/17 11:41 Bedside Glucose 177 mg/dl 187 mg/dl Imaging: no new imaging Exam: Physical Exam: Constitutional: appearance nourished, healthy and normal Ears, Nose, Mouth and Throat: mucous membranes moist, no injection and skin normal, eyes normal Cardiovascular: normal S-1 and S-2 and regular rate and rhythm Respiratory: clear to auscultation (CTA) and no rales, rhonchi or wheeze Musculoskeletal: no peripheral edema and good distal pulses Skin: no stigmata of neurocutaneous disease noted and normal and intact Eyes: extraocular muscles intact (EOMI) and pupils equal, round and reactive to light (PERRL) NEUROLOGIC EXAMINATION: Mental status: Alert and interactive Oriented to full date and location Oriented to person Speech somewhat dysarthric Cranial Nerves slight flattening of the nasolabial fold on left, eye brow raise symmetric Sensory: no sensory deficits to light touch Coordination: finger to nose some clumsiness with left hand, clumsiness with heel to duran on left Gait/Stance: Posture normal. Gait normal: with steady with steps, base, turning, heel and toe walking and tandem gait. Motor: left pronator drift Strength: left side intrinsic weakness, clumsy, left leg weakness with clumsy with heel to toe, right side 5/5 UE/LE Current Inpatient Medications Medications (Trade) Dose Ordered Sig/Will Route Start Time Stop Time Status Last Admin Dose Admin Nicardipine HCl 25 mg/Sodium Chloride 250 ml @ 0 mls/hr Q0M IV 01/01/17 11:51 01/31/17 11:50 01/03/17 17:58 25 MLS/HR Enoxaparin Sodium (Lovenox Inj) 40 mg Q24H SC 01/01/17 16:00 01/31/17 15:59 01/03/17 15:59 40 MG Acetaminophen (Tylenol Tab) 650 mg Q4H PRN PO 01/01/17 12:15 01/31/17 12:14 Nitroglycerin (Nitrostat Tab) 0.4 mg UD PRN SL 01/01/17 12:15 01/31/17 12:14 Insulin Aspart (novoLOG ASPART) SLIDING SCALE If C... ACHS SC 01/01/17 16:00 01/31/17 15:59 01/04/17 12:08 2 UNITS Glucose (Glucose 40% Gel) 15-30 GRAMS 15 GRAMS... UD PRN PO 01/01/17 12:15 01/31/17 12:14 Glucose (Glucose Chew Tab) 4-8 Tablets 4 Tabl... UD PRN PO 01/01/17 12:15 01/31/17 12:14 Dextrose (Dextrose 50% 50ML Syringe) 25-50ML OF 50% DW IV FOR... UD PRN IV 01/01/17 12:15 01/31/17 12:14 Glucagon (Glucagon Inj) 1 mg UD PRN SQ 01/01/17 12:15 01/31/17 12:14 Aspirin (Ecotrin Tab) 81 mg QAM PO 01/02/17 09:00 02/01/17 08:59 01/04/17 08:10 81 MG Gadobutrol (Gadavist) 9.5 mmol UD PRN IV 01/01/17 15:30 01/05/17 15:29 Insulin Glargine (Lantus Solostar Pen) 10 units Q12 SC 01/01/17 21:00 01/31/17 20:59 01/04/17 08:09 10 UNITS Ondansetron HCl (Zofran Inj) 4 mg Q4H PRN IV 01/01/17 17:30 01/31/17 17:29 01/01/17 20:22 4 MG Hydralazine HCl (HydrALAZINE INJ) 10 mg Q6 PRN IV. 01/02/17 02:45 02/01/17 02:44 01/04/17 03:32 10 MG Fluoxetine HCl (Prozac Cap) 20 mg QAM PO 01/04/17 09:00 02/03/17 08:59 01/04/17 08:10 20 MG Clopidogrel Bisulfate (plAVix TAB) 75 mg QAM PO 01/04/17 09:00 02/03/17 08:59 01/04/17 08:11 75 MG Lisinopril (Zestril Tab) 40 mg QAM PO 01/04/17 09:00 02/03/17 08:59 01/04/17 08:10 40 MG Metoprolol Tartrate (Lopressor Tab) 12.5 mg BID PO 01/03/17 21:00 02/02/17 20:59 01/04/17 08:10 12.5 MG Rosuvastatin Calcium (Crestor Tab) 40 mg QAM PO 01/05/17 09:00 02/04/17 08:59 Impression 52 year old male s/p right posterior lateral thalamus Plan 1. permissive hypertension and then slowly wean down 2. cardiology for recommendations with possible amyloid vs long time blood pressure enlargement- biopsy has been done 3. optimize DL, DM 4. PT/OT speech for discharge needs 5. he will be discharged to rehab and plans to go to [facility] due to his brother being in that area 6. Plavix 75 mg daily and aspirin 81 mg daily x 3 months and then aspirin for a lifetime unless other cardiac reasons to be on other therapy 7. will need to follow up with PCP and neurology at home once out of rehab 8. amyloid and hypercoag workup ordered. 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
[2017-01-04] MEDS: ENOXAPARIN 40 MG/0.4 ML SYR SC SCH (16:59)
[2017-01-04] MEDS ORDERED: DOCUSATE SODIUM 100 MG CAP PO ONE (17:00)
[2017-01-04] MEDS ORDERED: AMLODIPINE BESYLATE 5 MG TAB PO ONE (18:15)
--- NOTE | 2017-01-04 19:48 | Rheumatology Consultation ---
Rheumatology Consultation Date of Consultation: Jan 04, 2017. Requesting Physician: Dr. Koch Reason for Consultation: Amyloid deposits on TTE History of Present Illness Mr. Trejo is a pleasant 53 year old gentleman with no known past medical history who was admitted on 01/01/17 after experiencing recurrent episodes of left arm numbness/tingling and left sided weakness. First episode began last Tuesday when he noted that his left arm was numb and heavy while he had been typing on the computer all day. He also felt as if his left leg was "." Symptoms lasted for about 20 minutes. He took Aspirin and laid down with resolution of his symptoms. On Tuesday, he had another episode while taking a shower. He took a dose of aspirin and symptoms resolved in 20-30 minutes. He presented to the ED for further evaluation. He was found to be extremely hypertensive with renal insufficiency and newly diagnosed type 2 diabetes. Initial workup for his neurologic symptoms included a CT head that showed no acute abnormalities and an MRI brain demonstrating chronic small vessel changes and old lacunar infarct in the basal ganglia. During his hospitalization, he had another episode of left sided arm numbness and weakness. An MRI of the brain on 01/03 am demonstrated a new acute lacunar infarct in the posterior lateral right thalamus. He was noted to have troponin elevation and abnormal EKG. 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 His estimated EF was 60-65%. He has undergone a fat pad biopsy and several labs looking for paraproteinemia have been ordered. He has not seen a physician in years. He runs 4 miles about 3-4 times a week and has no chronic issues. He does not take medications on a routine basis. He was checking his blood pressure years ago with a blood pressure machine that his father gave him but has not done so in years. He notes that he saw his eye doctor 7 months ago and was told that there was some "abnormal bleeding in the back of his right eye". He did have his blood pressure taken at that time but does not recall if it was abnormal. He was advised to follow-up with his PCP. He does not have any joint complaints. He developed an erythematous scaly rash on the back of his right ear several years ago and it has evolved to involve the back of his scalp and both ears. He sometimes uses a medicated shampoo but has not seen a physician regarding the rash. There is no family history of any systemic inflammatory arthritis or connective tissue disease. His parents, who were in the room initially denied any chronic autoimmune diseases. His father does have chronic kidney disease of unclear etiology. Past Medical/Surgical History Medical History: no pertinent history Surgical History: no surgical history Social History History of Alcohol Use: No He works in [email or web address] and lives in [place] with his and daughter. He does not smoke, drink, or use any illicit drugs Review of Systems Constitutional: + weight loss (of about 5 pounds), + weakness, No fever, No chills, No sweats, No fatigue Eyes: No worsening of vision, No eye pain, No redness ENT: No hearing loss, No nasal symptoms, No sore throat, No trouble swallowing Respiratory: No cough, No shortness of breath, No dyspnea on exertion Cardiac: No chest pain, No orthopnea, No edema, No claudication Abdomen: + nausea, No pain, No vomiting, No diarrhea Musculoskeletal: No joint pain, No muscle pain, No swelling Male : No urinary frequency, No incontinence, No nocturia more than once/ night Neurologic: + weakness, + numbness/tingling, No memory loss Heme: No abnormal bleeding/bruising Endo: No fatigue Skin: No rash Allergies Coded Allergies: No Known Allergies (Unverified , 01/01/17) Medications Current Inpatient Medications Medications (Trade) Dose Ordered Sig/Will Route Start Time Stop Time Status Last Admin Dose Admin Nicardipine HCl 25 mg/Sodium Chloride 250 ml @ 0 mls/hr Q0M IV 01/01/17 11:51 01/31/17 11:50 01/03/17 17:58 25 MLS/HR Enoxaparin Sodium (Lovenox Inj) 40 mg Q24H SC 01/01/17 16:00 01/31/17 15:59 01/04/17 16:59 40 MG Acetaminophen (Tylenol Tab) 650 mg Q4H PRN PO 01/01/17 12:15 01/31/17 12:14 Nitroglycerin (Nitrostat Tab) 0.4 mg UD PRN SL 01/01/17 12:15 01/31/17 12:14 Insulin Aspart (novoLOG ASPART) SLIDING SCALE If C... ACHS SC 01/01/17 16:00 01/31/17 15:59 01/04/17 17:00 3 UNITS Glucose (Glucose 40% Gel) 15-30 GRAMS 15 GRAMS... UD PRN PO 01/01/17 12:15 01/31/17 12:14 Glucose (Glucose Chew Tab) 4-8 Tablets 4 Tabl... UD PRN PO 01/01/17 12:15 01/31/17 12:14 Dextrose (Dextrose 50% 50ML Syringe) 25-50ML OF 50% DW IV FOR... UD PRN IV 01/01/17 12:15 01/31/17 12:14 Glucagon (Glucagon Inj) 1 mg UD PRN SQ 01/01/17 12:15 01/31/17 12:14 Aspirin (Ecotrin Tab) 81 mg QAM PO 01/02/17 09:00 02/01/17 08:59 01/04/17 08:10 81 MG Gadobutrol (Gadavist) 9.5 mmol UD PRN IV 01/01/17 15:30 01/05/17 15:29 Insulin Glargine (Lantus Solostar Pen) 10 units Q12 SC 01/01/17 21:00 01/31/17 20:59 01/04/17 08:09 10 UNITS Ondansetron HCl (Zofran Inj) 4 mg Q4H PRN IV 01/01/17 17:30 01/31/17 17:29 01/01/17 20:22 4 MG Hydralazine HCl (HydrALAZINE INJ) 10 mg Q6 PRN IV. 01/02/17 02:45 02/01/17 02:44 01/04/17 03:32 10 MG Fluoxetine HCl (Prozac Cap) 20 mg QAM PO 01/04/17 09:00 02/03/17 08:59 01/04/17 08:10 20 MG Clopidogrel Bisulfate (plAVix TAB) 75 mg QAM PO 01/04/17 09:00 02/03/17 08:59 01/04/17 08:11 75 MG Lisinopril (Zestril Tab) 40 mg QAM PO 01/04/17 09:00 02/03/17 08:59 01/04/17 08:10 40 MG Metoprolol Tartrate (Lopressor Tab) 12.5 mg BID PO 01/03/17 21:00 01/04/17 23:59 01/04/17 08:10 12.5 MG Rosuvastatin Calcium (Crestor Tab) 40 mg QAM PO 01/05/17 09:00 02/04/17 08:59 Docusate Sodium (coLACE CAP) 100 mg BID PO 01/04/17 21:00 02/03/17 20:59 Senna (Senokot Tab) 8.6 mg QAM PO 01/05/17 09:00 02/04/17 08:59 Metoprolol Succinate (Toprol Xl Tab) 25 mg QAM PO 01/05/17 09:00 02/04/17 08:59 Physical Exam Date Time Temp Pulse Resp B/P (MAP) Pulse Ox O2 Delivery O2 Flow Rate FiO2 01/04/17 16:00 Room Air 01/04/17 15:52 36.9 64 22 160/98 (118) 97 Room Air 01/04/17 12:05 36.8 76 18 148/72 (97) 98 01/04/17 12:00 Room Air 01/04/17 08:18 36.8 70 18 150/91 (110) 95 01/04/17 08:00 Room Air 01/04/17 04:18 69 145/81 (102) 01/04/17 04:01 95 Room Air 01/04/17 03:18 36.8 60 18 193/92 (125) 96 Room Air 01/04/17 00:00 94 Room Air 01/03/17 23:09 36.6 52 18 163/95 (117) 96 Room Air 01/03/17 21:57 60 166/92 (116) 01/03/17 20:22 36.6 69 18 160/92 (114) 95 Room Air 01/03/17 20:00 98 Room Air Eyes: bilateral eyes normal inspection, bilateral eyes EOMI Neck: supple, no adenopathy Respiratory: chest non-tender, lungs clear, normal breath sounds Cardiovascular: regular rate, rhythm, no edema, no gallop Abdomen: normal bowel sounds, non tender Neurologic/Psychiatric: + pertinent finding (4+/5 left hip flexor and knee extensors; 5/5 biceps/triceps on upper extremities; pumper gager strength equal) Skin: normal color, + rash (erythematous scaly patches on posterior scalp, behind the ears, and small patches in the ears) Laboratory Results Last 24 Hours Test 01/03/17 21:03 01/04/17 00:00 01/04/17 07:02 01/04/17 08:05 Bedside Glucose 175 mg/dl 177 mg/dl White Blood Count 8.22 K/uL Red Blood Count 5.55 M/uL Hemoglobin 17.0 g/dL Hematocrit 46.6 % Mean Corpuscular Volume 84.0 fL Mean Corpuscular Hemoglobin 30.6 pg Mean Corpuscular Hemoglobin Concent 36.5 g/dl RDW Standard Deviation 40.0 fL RDW Coefficient of Variation 13.1 % Platelet Count 342 K/uL Mean Platelet Volume 10.6 fL Sodium Level 142 mmol/L Potassium Level 3.7 mmol/L Chloride Level 103 mmol/L Carbon Dioxide Level 28 mmol/L Anion Gap 11.0 mmol/L Blood Urea Nitrogen 21 mg/dl Creatinine 1.47 mg/dl Est Creatinine Clear Calc Drug Dose 63.8 ml/min Estimated GFR () 62.2 Estimated GFR (Non- 53.7 BUN/Creatinine Ratio 14.5 Random Glucose 174 mg/dl Calcium Level 9.3 mg/dl Magnesium Level 2.4 mg/dl Test 01/04/17 11:41 01/04/17 16:12 Bedside Glucose 187 mg/dl 154 mg/dl Assessment & Plan Assessment & Plan: 53 yo man admitted for CVA in the setting of hypertensive urgency. Workup has revealed renal insufficiency, diabetes, and LVH with abnormal TTE suggestive of amyloid deposits. There are several types of amyloidosis. Biopsy would help discern if he indeed does have amyloidosis and would help guide treatment if present. He has no features suggestive a systemic chronic rheumatic disease that puts him at risk for AA amyloidosis. Chemotherapy is only indicated in certain patients with AL amyloidosis. Laboratory studies pending to discern if he has any abnormal proteins. Rash on his scalp is consistent with psoriasis. He does not have joint inflammation. Recommendations 1. No specific medications at this time. 2. Follow-up pending labs 3. BP control per cardiology recommendations 4. Appreciate neurology recs as well. Patient plans to go to [facility] for rehab and will need to establish care with a primary physician. Thank you for allowing rheumatology to participate in the care of this patient.
[2017-01-04] MEDS: DOCUSATE SODIUM 100 MG CAP PO SCH (21:00)
[2017-01-05] VITALS (7 sets, daily range): BP systolic 143–184; BP diastolic 93–110; PULSE 45–71; TEMP 36.4–36.8; O2SAT 94–98
[2017-01-05 06:49] LABS: HEMATOCRIT 47.5 % (42-52); MEAN CELL VOLUME 84.1 fL (80-100); MEAN CORPUSCULAR HEMOGLOBIN 29.7 pg (25-34); MEAN CORPUSCULAR HGB CONC 35.4 g/dl (32-36); MEAN PLATELET VOLUME 10.6 fL (7.4-10.4); PLATELET COUNT 320 K/uL (130-400); RED BLOOD COUNT 5.65 M/uL (4.7-6.1); WHITE BLOOD COUNT 6.04 K/uL (4.8-10.8)
[2017-01-05 07:27] LABS: BUN/CREATININE RATIO 20.1 (10-20); CALCIUM 8.8 mg/dl (8.5-10.1); CREATININE 1.42 mg/dl (0.60-1.40); POTASSIUM 3.8 mmol/L (3.5-5.1)
[2017-01-05 07:32] LABS: ALB/GLOB RATIO 1.2 (0.9-2)
[2017-01-05] MEDS: ROSUVASTATIN CALCIUM 20 MG TAB PO SCH (08:00)
[2017-01-05] MEDS: LISINOPRIL 40 MG TAB PO SCH (08:01)
[2017-01-05] MEDS: METOPROLOL SUCC 25MG EXT REL TAB PO SCH (08:01)
[2017-01-05] MEDS: FLUOXETINE HCL 20 MG CAP PO SCH (08:01)
[2017-01-05] MEDS: CLOPIDOGREL BISULFATE 75 MG TAB PO SCH (08:01)
[2017-01-05] MEDS: ASPIRIN 81 MG ECTAB PO SCH (08:01)
[2017-01-05] MEDS: INSULIN ASPART 100 UNITS/ML 3 ML PEN SC SCH ×4 (08:06→20:59)
[2017-01-05] MEDS: INSULIN GLARGINE SOLOSTAR 100 UNITS/ML 3 ML PEN SC SCH ×2 (08:07→21:05)
[2017-01-05] MEDS: AMLODIPINE BESYLATE 5 MG TAB PO SCH (08:07)
[2017-01-05] MEDS: SENNA 8.6 MG TAB PO SCH (08:10)
[2017-01-05] MEDS: DOCUSATE SODIUM 100 MG CAP PO SCH ×2 (08:10→21:03)
[2017-01-05 08:20] LABS: ALBUMIN 4.8 G/DL (3.8-4.8); FREE KAPPA 11.5 MG/L (3.3-19.4); FREE KAPPA/LAMBDA RATIO 1.34 (0.26-1.65); FREE LAMBDA 8.6 MG/L (5.7-26.3); GAMMA GLOBULIN 0.8 G/DL (0.8-1.7); TOTAL PROTEIN 7.3 G/DL (6.2-8.3)
--- NOTE | 2017-01-05 08:52 | Progress Note ---
Subjective Date of Service: Jan 05, 2017. Subjective Pt evaluation today including: conversation w/ patient, physical exam, lab review, review of studies, review of inpatient medication list Saw/examined the patient in room 243 He is seated and eating breakfast using his L arm/hand - states he still has some numbness/tingling on his L side Problem List Medical Problems: (1) Hypertensive urgency Status: Acute Review of Systems Constitutional: No fever, No chills Respiratory: No cough, No sputum, No shortness of breath Cardiac: No chest pain Abdomen: No pain, No nausea, No vomiting, No diarrhea Neurologic: + weakness, + numbness/tingling, + balance problems, No memory loss , No paralysis, No vertigo Heme: No abnormal bleeding/bruising Medications Current Inpatient Medications Medications (Trade) Dose Ordered Sig/Will Route Start Time Stop Time Status Last Admin Dose Admin Nicardipine HCl 25 mg/Sodium Chloride 250 ml @ 0 mls/hr Q0M IV 01/01/17 11:51 01/31/17 11:50 01/03/17 17:58 25 MLS/HR Enoxaparin Sodium (Lovenox Inj) 40 mg Q24H SC 01/01/17 16:00 01/31/17 15:59 01/04/17 16:59 40 MG Acetaminophen (Tylenol Tab) 650 mg Q4H PRN PO 01/01/17 12:15 01/31/17 12:14 Nitroglycerin (Nitrostat Tab) 0.4 mg UD PRN SL 01/01/17 12:15 01/31/17 12:14 Insulin Aspart (novoLOG ASPART) SLIDING SCALE If C... ACHS SC 01/01/17 16:00 01/31/17 15:59 01/05/17 08:06 6 UNITS Glucose (Glucose 40% Gel) 15-30 GRAMS 15 GRAMS... UD PRN PO 01/01/17 12:15 01/31/17 12:14 Glucose (Glucose Chew Tab) 4-8 Tablets 4 Tabl... UD PRN PO 01/01/17 12:15 01/31/17 12:14 Dextrose (Dextrose 50% 50ML Syringe) 25-50ML OF 50% DW IV FOR... UD PRN IV 01/01/17 12:15 01/31/17 12:14 Glucagon (Glucagon Inj) 1 mg UD PRN SQ 01/01/17 12:15 01/31/17 12:14 Aspirin (Ecotrin Tab) 81 mg QAM PO 01/02/17 09:00 02/01/17 08:59 01/05/17 08:01 81 MG Gadobutrol (Gadavist) 9.5 mmol UD PRN IV 01/01/17 15:30 01/05/17 15:29 Insulin Glargine (Lantus Solostar Pen) 10 units Q12 SC 01/01/17 21:00 01/31/17 20:59 01/05/17 08:07 10 UNITS Ondansetron HCl (Zofran Inj) 4 mg Q4H PRN IV 01/01/17 17:30 01/31/17 17:29 01/01/17 20:22 4 MG Hydralazine HCl (HydrALAZINE INJ) 10 mg Q6 PRN IV. 01/02/17 02:45 02/01/17 02:44 01/04/17 03:32 10 MG Fluoxetine HCl (Prozac Cap) 20 mg QAM PO 01/04/17 09:00 02/03/17 08:59 01/05/17 08:01 20 MG Clopidogrel Bisulfate (plAVix TAB) 75 mg QAM PO 01/04/17 09:00 02/03/17 08:59 01/05/17 08:01 75 MG Lisinopril (Zestril Tab) 40 mg QAM PO 01/04/17 09:00 02/03/17 08:59 01/05/17 08:01 40 MG Rosuvastatin Calcium (Crestor Tab) 40 mg QAM PO 01/05/17 09:00 02/04/17 08:59 01/05/17 08:00 40 MG Docusate Sodium (coLACE CAP) 100 mg BID PO 01/04/17 21:00 02/03/17 20:59 Senna (Senokot Tab) 8.6 mg QAM PO 01/05/17 09:00 02/04/17 08:59 Metoprolol Succinate (Toprol Xl Tab) 25 mg QAM PO 01/05/17 09:00 02/04/17 08:59 01/05/17 08:01 25 MG Amlodipine Besylate (Norvasc Tab) 10 mg QAM PO 01/05/17 09:00 02/04/17 08:59 01/05/17 08:07 10 MG Objective Vital Signs Date Time Temp Pulse Resp B/P (MAP) Pulse Ox O2 Delivery O2 Flow Rate FiO2 01/05/17 07:58 71 170/110 (130) 01/05/17 06:58 36.6 45 19 184/96 (125) 94 Room Air 01/05/17 05:16 168/98 (121) 01/05/17 04:26 36.8 67 20 94 Room Air 01/05/17 04:00 Room Air 01/04/17 23:59 Room Air 01/04/17 23:42 36.6 57 20 172/96 (121) 96 Room Air 01/04/17 21:18 181/102 (128) 01/04/17 20:02 Room Air 01/04/17 19:53 36.9 57 22 154/97 (116) 96 Room Air 01/04/17 16:00 Room Air 01/04/17 15:52 36.9 64 22 160/98 (118) 97 Room Air 01/04/17 12:05 36.8 76 18 148/72 (97) 98 01/04/17 12:00 Room Air Physical Exam General Appearance: no apparent distress Respiratory/Chest: chest non-tender, lungs clear, normal breath sounds, no respiratory distress, no accessory muscle use Cardiovascular: regular rate, rhythm, no edema, no murmur Abdomen: normal bowel sounds, non tender, soft Extremities: normal inspection, no pedal edema Neurologic/Psychiatric: alert, normal mood/affect, + motor weakness (L hand, LLE) Laboratory Results Last 24 Hours Test 01/04/17 11:41 01/04/17 16:12 01/04/17 20:29 01/05/17 06:36 Bedside Glucose 187 mg/dl 154 mg/dl 170 mg/dl White Blood Count 6.04 K/uL Red Blood Count 5.65 M/uL Hemoglobin 16.8 g/dL Hematocrit 47.5 % Mean Corpuscular Volume 84.1 fL Mean Corpuscular Hemoglobin 29.7 pg Mean Corpuscular Hemoglobin Concent 35.4 g/dl RDW Standard Deviation 39.2 fL RDW Coefficient of Variation 12.9 % Platelet Count 320 K/uL Mean Platelet Volume 10.6 fL Sodium Level 139 mmol/L Potassium Level 3.8 mmol/L Chloride Level 104 mmol/L Carbon Dioxide Level 28 mmol/L Anion Gap 7.0 mmol/L Blood Urea Nitrogen 29 mg/dl Creatinine 1.42 mg/dl Est Creatinine Clear Calc Drug Dose 71.8 ml/min Estimated GFR () 64.9 Estimated GFR (Non- 56.0 BUN/Creatinine Ratio 20.1 Random Glucose 165 mg/dl Calcium Level 8.8 mg/dl Total Bilirubin 1.1 mg/dl Aspartate Amino Transf (AST/SGOT) 18 U/L Alanine Aminotransferase (ALT/SGPT) 29 U/L Alkaline Phosphatase 76 U/L Total Protein 6.9 gm/dl Albumin 3.7 gm/dl Globulin 3.2 gm/dl Albumin/Globulin Ratio 1.2 Test 01/05/17 06:38 Bedside Glucose 150 mg/dl Assessment and Plan This is a 52 year old male with no past medical history presented with L sided numbness/tingling/weakness Acute CVA 01/05 PT/OT aspirin + Plavix x3 months, then just aspirin 01/04 patient presented with L sided arm and leg numbness/tingling and motor weakness which has been intermittent initial Head CT and MRI were negative for acute processes (old lacunar infarct seen) repeat Head CT also negative, but due to persistent symptoms a repeat Brain MRI was performed showing an acute lacunar stroke likely due to malignant HTN as above started aspirin 81mg, Plavix 75mg x3 months, then just aspirin PT/OT/speech appreciate neurology input 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 consulted cardiology - as of now, BP control, will await consultation for further recommendations fat pad biopsy pending Hypertensive Urgency 01/05 Toprol XL 25mg, Lisinopril 40mg - BP still elevated started on amlodipine 10mg may need fourth agent if blood pressure remains elevated 01/04 patient presented with SBP >250/100 given Hydralazine, Labetalol in the ED with little change in blood pressure this seems like long-standing uncontrolled HTN due to LVH changes on EKG and echo initially started on nicardipine drip at 5mg/hr initially - goal reduction should be slow; ~ 180-190 SBP in 24 hours currently off of the drip, now started on Lisinopril 40mg, Amlodipine 5mg and Metoprolol - will adjust medications accordingly New Diagnosis of DM2 Ha1c = 10.2% started patient on Lantus 10 units BID and a sliding scale will likely need insulin on discharge started on Lisinopril started on aspirin 81mg and statin diabetic education consulted Hyperlipidemia total cholesterol > 300 LDL ~ 240 Lipitor changed to Crestor 40mg DVT ppx Lovenox FULL CODE
--- NOTE | 2017-01-05 10:17 | Cardiology Follow-Up ---
Subjective General Date of Service: Jan 05, 2017. Chief Complaint: Hypertension, CVA Pt evaluation today including: conversation w/ patient, physical exam, chart review, lab review, review of studies, review of inpatient medication list History of Present Illness Patient seen and examined. Chart, medications, and telemetry reviewed. Notes perhaps some further improvement in the the left arm/hand numbness & tingling over the last 24 hours. No headaches, chest pain, palpitations, dyspnea, cough, orthopnea, PND, or peripheral edema Telemetry: Currently sinus at 72 bpm. Bradycardic down to 54 bpm overnight. One ventricular couplet. No atrial fibrillation, atrial flutter, significant ventricular arrhythmias, significant bradyarrhythmias, or pauses. Allergies Coded Allergies: No Known Allergies (Unverified , 01/01/17) Social History Hx Tobacco Use In Past Year?: No Hx Alcohol Use - Type And Amou: No Hx Substance Use - Type And Am: No Problem List Medical Problems: (1) Hypertensive urgency Status: Acute Physical Exam Vital Signs Last Vital Signs Documentation Date Time Temp Pulse Resp B/P (MAP) Pulse Ox O2 Delivery O2 Flow Rate FiO2 01/05/17 07:58 71 170/110 (130) 01/05/17 06:58 36.6 19 94 Room Air Physical Exam Constitutional: General Apperance: heathly-appearing Level of Distress: NAD Psychiatric: Mental Status: active & alert Orientation: to time, to place, to person Memory: recent memory normal, remote memory normal Head: normocephalic, atraumatic Eyes: Pupils: PERRLA Neck: pertinent finding (No JVD) Lungs: Respiratory effort: no dyspnea Auscultation: breath sounds normal, no wheezing, no rales/crackles, no rhonchi Cardiovascular: Apical Impulse: not displaced Heart Auscultation: RRR, normal S1, normal S2, no murmurs, no rubs, no gallops Peripheral Pulses: Dorsalis Pedis Pulse: normal on the left, normal on the right Abdomen: Bowel Sounds: normal Inspection & Palpation: soft Extremities: no cyanosis, no edema, no clubbing Assessment and Plan Assessment and Plan Admission on January 01, 2017, acute cerebrovascular accident. Acute cerebrovascular accident High intensity statin therapy prescribed (see below) Hypertension. See below. Neurology recommended Aspirin & Clopidogrel x 3 months then aspirin alone PT/OT, rehabilitation at [facility] where his brother in law is on staff Marked hypertension, hypertensive urgency Blood pressures remain elevated despite Lisinopril 40 mg/day, Amlodipine 10 mg/day, and Toprol XL 25 mg/day. Note: Beta-chintan utilized primarily given nonsustained ventricular tachycardia observed on telemetry Add terazosin 1 mg at bedtime tonight Patient aware of the benefits, risks, adverse reactions, etc of the above medications. Nonpharmacological treatments also discussed. He will likely require further outpatient adjustment(s) after equilibrating to the above. ? Amyloid cardiomyopathy Echocardiography raised concern for a speckling pattern suggestive of amyloid cardiomyopathy. Clinically doubt based on history/presentation. Suspect hypertensive heart disease. Await workup which included a fat pad biopsy on 01/04/2017. Nonsustained wide complex tachycardia consistent with nonsustained ventricular tachycardia Asymptomatic Electrolytes and TSH OK Rhythm issues resolved following initiation of beta-chintan therapy Extremely elevated LDL level (247 mg/dL) Concern noted for familial hypercholesterolemia Rosuvastatin 40 mg/day prescribed. Consider genetic testing as an outpatient. Anticoagulation. No cardiac indication for initiation of anticoagulation at this point. Newly diagnosed type II diabetes mellitus. HgA1c 10.2% As per the Hospitalized service. Cardiology attending: Pt seen and examined, agree with findings and assessment as per Alden Crane. BP remains significantly elevated. Will make above medication changes and titrate as necessary. Will need close f/u as outpatient for further management. Laboratory Results Last 24 Hours Test 01/04/17 11:41 01/04/17 16:12 01/04/17 20:29 01/05/17 06:36 Bedside Glucose 187 mg/dl 154 mg/dl 170 mg/dl White Blood Count 6.04 K/uL Red Blood Count 5.65 M/uL Hemoglobin 16.8 g/dL Hematocrit 47.5 % Mean Corpuscular Volume 84.1 fL Mean Corpuscular Hemoglobin 29.7 pg Mean Corpuscular Hemoglobin Concent 35.4 g/dl RDW Standard Deviation 39.2 fL RDW Coefficient of Variation 12.9 % Platelet Count 320 K/uL Mean Platelet Volume 10.6 fL Sodium Level 139 mmol/L Potassium Level 3.8 mmol/L Chloride Level 104 mmol/L Carbon Dioxide Level 28 mmol/L Anion Gap 7.0 mmol/L Blood Urea Nitrogen 29 mg/dl Creatinine 1.42 mg/dl Est Creatinine Clear Calc Drug Dose 71.8 ml/min Estimated GFR () 64.9 Estimated GFR (Non- 56.0 BUN/Creatinine Ratio 20.1 Random Glucose 165 mg/dl Calcium Level 8.8 mg/dl Total Bilirubin 1.1 mg/dl Aspartate Amino Transf (AST/SGOT) 18 U/L Alanine Aminotransferase (ALT/SGPT) 29 U/L Alkaline Phosphatase 76 U/L Total Protein 6.9 gm/dl Albumin 3.7 gm/dl Globulin 3.2 gm/dl Albumin/Globulin Ratio 1.2 Test 01/05/17 06:38 Bedside Glucose 150 mg/dl
--- NOTE | 2017-01-05 15:28 | Neurology Progress Notes ---
Neurology Progress Note Date of Service Jan 05, 2017. Luis Antonio Ortiz is a 52 year old male with no know PMH - does not follow with a primary care physician and does no take any medications - presents secondary to L sided weakness; L arm numbness/tingling and L leg motor weakness. He had an event 8 days prior to arrival, and the symptoms lasted around 20 minutes. He had having trouble typing with his left hand; it was weak and he was missing the keys. The next morning he developed L sided weakness/numbness/tingling for about 20 minutes and symptoms began to subside, his mother gave him some aspirin to take but that didn't help. He came the the ED for evaluation and was found to have a blood pressure >250/ 100; noted to have blood sugars >300. Head CT was negative. Symptoms resolved, but blood pressure remained high. he has an MRI with no acute finding. That evening he had a return of the left sided numbness, tingling and weakness. UE/ LE the MRI was repeated. Today thinks the numbness is improving he has been up out of bed walking with walker. denies CP, SOB, abdominal pain. Objective Date Time Temp Pulse Resp B/P (MAP) Pulse Ox O2 Delivery O2 Flow Rate FiO2 01/05/17 12:00 Room Air 01/05/17 11:00 36.4 60 18 159/96 (117) 98 Room Air 01/05/17 08:00 Room Air 01/05/17 07:58 71 170/110 (130) 01/05/17 06:58 36.6 45 19 184/96 (125) 94 Room Air 01/05/17 05:16 168/98 (121) 01/05/17 04:26 36.8 67 20 94 Room Air 01/05/17 04:00 Room Air 01/04/17 23:59 Room Air 01/04/17 23:42 36.6 57 20 172/96 (121) 96 Room Air 01/04/17 21:18 181/102 (128) 01/04/17 20:02 Room Air 01/04/17 19:53 36.9 57 22 154/97 (116) 96 Room Air 01/04/17 16:00 Room Air 01/04/17 15:52 36.9 64 22 160/98 (118) 97 Room Air Last 24 Hours Test 01/04/17 16:12 01/04/17 20:29 01/05/17 06:36 01/05/17 06:38 Bedside Glucose 154 mg/dl 170 mg/dl 150 mg/dl White Blood Count 6.04 K/uL Red Blood Count 5.65 M/uL Hemoglobin 16.8 g/dL Hematocrit 47.5 % Mean Corpuscular Volume 84.1 fL Mean Corpuscular Hemoglobin 29.7 pg Mean Corpuscular Hemoglobin Concent 35.4 g/dl RDW Standard Deviation 39.2 fL RDW Coefficient of Variation 12.9 % Platelet Count 320 K/uL Mean Platelet Volume 10.6 fL Sodium Level 139 mmol/L Potassium Level 3.8 mmol/L Chloride Level 104 mmol/L Carbon Dioxide Level 28 mmol/L Anion Gap 7.0 mmol/L Blood Urea Nitrogen 29 mg/dl Creatinine 1.42 mg/dl Est Creatinine Clear Calc Drug Dose 71.8 ml/min Estimated GFR () 64.9 Estimated GFR (Non- 56.0 BUN/Creatinine Ratio 20.1 Random Glucose 165 mg/dl Calcium Level 8.8 mg/dl Total Bilirubin 1.1 mg/dl Aspartate Amino Transf (AST/SGOT) 18 U/L Alanine Aminotransferase (ALT/SGPT) 29 U/L Alkaline Phosphatase 76 U/L Total Protein 6.9 gm/dl Albumin 3.7 gm/dl Globulin 3.2 gm/dl Albumin/Globulin Ratio 1.2 Test 01/05/17 11:14 Bedside Glucose 111 mg/dl Imaging: no new imaging Exam: Gen: alert NAD lungs normal respiratory effort CV RRR moves all ext spontaneously left hand and arm clumsy left leg clumsy Current Inpatient Medications Medications (Trade) Dose Ordered Sig/Will Route Start Time Stop Time Status Last Admin Dose Admin Nicardipine HCl 25 mg/Sodium Chloride 250 ml @ 0 mls/hr Q0M IV 01/01/17 11:51 01/31/17 11:50 01/03/17 17:58 25 MLS/HR Enoxaparin Sodium (Lovenox Inj) 40 mg Q24H SC 01/01/17 16:00 01/31/17 15:59 01/04/17 16:59 40 MG Acetaminophen (Tylenol Tab) 650 mg Q4H PRN PO 01/01/17 12:15 01/31/17 12:14 Nitroglycerin (Nitrostat Tab) 0.4 mg UD PRN SL 01/01/17 12:15 01/31/17 12:14 Insulin Aspart (novoLOG ASPART) SLIDING SCALE If C... ACHS SC 01/01/17 16:00 01/31/17 15:59 01/05/17 12:25 1 UNITS Glucose (Glucose 40% Gel) 15-30 GRAMS 15 GRAMS... UD PRN PO 01/01/17 12:15 01/31/17 12:14 Glucose (Glucose Chew Tab) 4-8 Tablets 4 Tabl... UD PRN PO 01/01/17 12:15 01/31/17 12:14 Dextrose (Dextrose 50% 50ML Syringe) 25-50ML OF 50% DW IV FOR... UD PRN IV 01/01/17 12:15 01/31/17 12:14 Glucagon (Glucagon Inj) 1 mg UD PRN SQ 01/01/17 12:15 01/31/17 12:14 Aspirin (Ecotrin Tab) 81 mg QAM PO 01/02/17 09:00 02/01/17 08:59 01/05/17 08:01 81 MG Gadobutrol (Gadavist) 9.5 mmol UD PRN IV 01/01/17 15:30 01/05/17 15:29 Insulin Glargine (Lantus Solostar Pen) 10 units Q12 SC 01/01/17 21:00 01/31/17 20:59 01/05/17 08:07 10 UNITS Ondansetron HCl (Zofran Inj) 4 mg Q4H PRN IV 01/01/17 17:30 01/31/17 17:29 01/01/17 20:22 4 MG Hydralazine HCl (HydrALAZINE INJ) 10 mg Q6 PRN IV. 01/02/17 02:45 02/01/17 02:44 01/04/17 03:32 10 MG Fluoxetine HCl (Prozac Cap) 20 mg QAM PO 01/04/17 09:00 02/03/17 08:59 01/05/17 08:01 20 MG Clopidogrel Bisulfate (plAVix TAB) 75 mg QAM PO 01/04/17 09:00 02/03/17 08:59 01/05/17 08:01 75 MG Lisinopril (Zestril Tab) 40 mg QAM PO 01/04/17 09:00 02/03/17 08:59 01/05/17 08:01 40 MG Rosuvastatin Calcium (Crestor Tab) 40 mg QAM PO 01/05/17 09:00 02/04/17 08:59 01/05/17 08:00 40 MG Docusate Sodium (coLACE CAP) 100 mg BID PO 01/04/17 21:00 02/03/17 20:59 Senna (Senokot Tab) 8.6 mg QAM PO 01/05/17 09:00 02/04/17 08:59 Metoprolol Succinate (Toprol Xl Tab) 25 mg QAM PO 01/05/17 09:00 02/04/17 08:59 01/05/17 08:01 25 MG Amlodipine Besylate (Norvasc Tab) 10 mg QAM PO 01/05/17 09:00 02/04/17 08:59 01/05/17 08:07 10 MG Terazosin HCl (Hytrin Cap) 1 mg HS PO 01/05/17 21:00 02/04/17 20:59 Impression 52 year old male s/p right posterior lateral thalamus Plan 1. permissive hypertension and then slowly wean down 2. cardiology for recommendations with possible amyloid vs long time blood pressure enlargement- biopsy has been done 3. optimize DL, DM 4. PT/OT speech for discharge needs 5. he will be discharged to rehab and plans to go to area due to his brother being in that area- discharge planned tomorrow 6. Plavix 75 mg daily and aspirin 81 mg daily x 3 months and then aspirin for a lifetime unless other cardiac reasons to be on other therapy 7. will need to follow up with PCP and neurology at home once out of rehab 8. amyloid and hypercoag workup ordered. part of work up will need to wait until after off lovenox 9. will sign off for now but will be available for further input as needed. I have seen and discussed above patient with Dr Fernandez Skinner, neurology Patient seen a bit better left leg still clumsy and unreliable and left arm is still weak with a drift speech ok and minimal left facial Off to [place] for rehab tomorrow Continue asa and plavix records regarding coag workup and issue of amyloid cardiomyopathy can be sent off when available we will sign off for now Fernandez Skinner MD
[2017-01-05 16:06] LABS: ALBUMIN % 79.83 %; ALPHA-2-GLOBULIN % 7.69 %; BETA GLOBULIN % 9.59 %; CREATININE UR 293 MG/DL (20-370); GAMMA GLOBULIN % 2.88 %
[2017-01-05] MEDS: ENOXAPARIN 40 MG/0.4 ML SYR SC SCH (16:45)
[2017-01-06] VITALS (7 sets, daily range): BP systolic 130–178; BP diastolic 75–119; PULSE 52–72; TEMP 36.3–36.8; O2SAT 92–99
[2017-01-06 06:33] LABS: B2 GLYCOPROTEIN IGA <9 SAU (<=20); B2 GLYCOPROTEIN IGG <9 SGU (<=20); B2 GLYCOPROTEIN IGM 10 SMU (<=20); PROTEIN C ACTIVITY** TC 1777X 142 % (70-180); PROTEIN S ACT(FUNCT)**1779X 127 % (70-150)
[2017-01-06 06:54] LABS: HEMATOCRIT 44.2 % (42-52); MEAN CELL VOLUME 84.5 fL (80-100); MEAN CORPUSCULAR HGB CONC 35.5 g/dl (32-36); MEAN PLATELET VOLUME 10.5 fL (7.4-10.4); PLATELET COUNT 274 K/uL (130-400); RED BLOOD COUNT 5.23 M/uL (4.7-6.1)
[2017-01-06 07:21] LABS: BUN/CREATININE RATIO 20.9 (10-20); CALCIUM 8.9 mg/dl (8.5-10.1); CREATININE 1.32 mg/dl (0.60-1.40); POTASSIUM 3.7 mmol/L (3.5-5.1)
[2017-01-06] MEDS: DOCUSATE SODIUM 100 MG CAP PO SCH ×3 (08:41→21:32)
[2017-01-06] MEDS: ASPIRIN 81 MG ECTAB PO SCH (08:42)
[2017-01-06] MEDS: ROSUVASTATIN CALCIUM 20 MG TAB PO SCH (08:42)
[2017-01-06] MEDS: AMLODIPINE BESYLATE 5 MG TAB PO SCH (08:43)
[2017-01-06] MEDS: CLOPIDOGREL BISULFATE 75 MG TAB PO SCH (08:44)
[2017-01-06] MEDS: FLUOXETINE HCL 20 MG CAP PO SCH (08:45)
[2017-01-06] MEDS: SENNA 8.6 MG TAB PO SCH ×2 (08:45→08:55)
[2017-01-06] MEDS: METOPROLOL SUCC 25MG EXT REL TAB PO SCH (08:46)
[2017-01-06] MEDS: LISINOPRIL 40 MG TAB PO SCH (08:47)
[2017-01-06] MEDS: INSULIN GLARGINE SOLOSTAR 100 UNITS/ML 3 ML PEN SC SCH ×2 (08:48→21:31)
[2017-01-06] MEDS: INSULIN ASPART 100 UNITS/ML 3 ML PEN SC SCH ×4 (08:50→21:00)
--- NOTE | 2017-01-06 09:20 | Cardiology Follow-Up ---
Subjective General Date of Service: Jan 06, 2017. Chief Complaint: Hypertension, CVA Pt evaluation today including: conversation w/ patient, physical exam, chart review, lab review, review of studies, review of inpatient medication list History of Present Illness Patient seen and examined. Chart, medications, and telemetry reviewed. No headaches, chest pain, palpitations, dyspnea, cough, orthopnea, PND, or peripheral edema Left upper extremity tingling, left lower extremity weakness Telemetry: Currently sinus at 80 bpm. Bradycardic down to 40 bpm at 02:44:55. Rare atrial and ventricular ectopy. Rare ventricular couplet. No atrial fibrillation, atrial flutter, significant ventricular arrhythmias, significant bradyarrhythmias, or pauses. Allergies Coded Allergies: No Known Allergies (Unverified , 01/01/17) Social History Hx Tobacco Use In Past Year?: No Hx Alcohol Use - Type And Amou: No Hx Substance Use - Type And Am: No Problem List Medical Problems: (1) Hypertensive urgency Status: Acute Physical Exam Vital Signs Last Vital Signs Documentation Date Time Temp Pulse Resp B/P (MAP) Pulse Ox O2 Delivery O2 Flow Rate FiO2 01/06/17 07:50 36.3 66 16 157/90 (112) 96 Room Air Physical Exam Constitutional: General Apperance: heathly-appearing Level of Distress: NAD Psychiatric: Mental Status: active & alert Orientation: to time, to place, to person Memory: recent memory normal, remote memory normal Head: normocephalic, atraumatic Eyes: Pupils: PERRLA Neck: pertinent finding (No JVD) Lungs: Respiratory effort: no dyspnea Auscultation: breath sounds normal, no wheezing, no rales/crackles, no rhonchi Cardiovascular: Apical Impulse: not displaced Heart Auscultation: RRR, normal S1, normal S2, no murmurs, no rubs, no gallops Peripheral Pulses: Dorsalis Pedis Pulse: normal on the left, normal on the right Abdomen: Bowel Sounds: normal Inspection & Palpation: soft Extremities: no cyanosis, no edema, no clubbing Assessment and Plan Assessment and Plan Admission on January 01, 2017, acute cerebrovascular accident. Acute cerebrovascular accident High intensity statin therapy prescribed (see below) Hypertension. See below. Neurology advised Aspirin & Clopidogrel x 3 months then aspirin alone PT/OT, eventual rehabilitation at [facility] Marked hypertension, hypertensive urgency Blood pressures remain elevated despite Lisinopril 40 mg/day, Amlodipine 10 mg/day, Toprol XL 25 mg/day, and Terazosin Note: Beta-chintan prescribed secondary to the previously observed asymptomatic nonsustained ventricular tachycardia Change Toprol XL to Carvedilol today. Nonpharmacological treatments discussed 01/05/2017 Undergoing secondary workup. Patient aware of the benefits, risks, adverse reactions, etc of the above medications. ? Amyloid cardiomyopathy Echocardiography raised concern for a speckling pattern suggestive of amyloid cardiomyopathy. Clinically doubt based on history/presentation. Suspect hypertensive heart disease. Amyloidosis NOT seen on the 01/04/2017 fat pad biopsy. Nonsustained wide complex tachycardia consistent with nonsustained ventricular tachycardia Asymptomatic Electrolytes and TSH OK Continue beta-chintan therapy Extremely elevated LDL level (247 mg/dL) ? familial hypercholesterolemia Rosuvastatin 40 mg/day prescribed. Consider genetic testing as an outpatient. Anticoagulation. No cardiac indication for initiation of anticoagulation at this point. Newly diagnosed type II diabetes mellitus. HgA1c 10.2% As per the Hospitalized service. Cardiology attending: Pt seen and examined, agree with findings and assessment as per Alden Crane. Secondary workup being completed, so far, unremarkable. BP now improved with above medication adjustments, would d/c home on above recommendations. Ok to d/c to home this PM if BP remains stable. Laboratory Results Last 24 Hours Test 01/05/17 11:14 01/05/17 16:42 01/05/17 20:48 01/06/17 06:42 Bedside Glucose 111 mg/dl 131 mg/dl 148 mg/dl White Blood Count 5.30 K/uL Red Blood Count 5.23 M/uL Hemoglobin 15.7 g/dL Hematocrit 44.2 % Mean Corpuscular Volume 84.5 fL Mean Corpuscular Hemoglobin 30.0 pg Mean Corpuscular Hemoglobin Concent 35.5 g/dl RDW Standard Deviation 39.8 fL RDW Coefficient of Variation 13.0 % Platelet Count 274 K/uL Mean Platelet Volume 10.5 fL Sodium Level 141 mmol/L Potassium Level 3.7 mmol/L Chloride Level 105 mmol/L Carbon Dioxide Level 25 mmol/L Anion Gap 10.0 mmol/L Blood Urea Nitrogen 28 mg/dl Creatinine 1.32 mg/dl Est Creatinine Clear Calc Drug Dose 77.0 ml/min Estimated GFR () 70.9 Estimated GFR (Non- 61.2 BUN/Creatinine Ratio 20.9 Random Glucose 118 mg/dl Calcium Level 8.9 mg/dl
--- NOTE | 2017-01-06 10:29 | DIAGNOSTIC IMAGING REPORT ---
DUPLEX RENAL ARTERY CLINICAL HISTORY: 52 years-old Male presenting with r/o renal artery stenosis. TECHNIQUE: Real-time grayscale and color and spectral Doppler ultrasound imaging of the kidneys was performed. COMPARISON: None. FINDINGS: Right kidney: Intrarenal resistive indices range from 0.51 to 0.66. Normal intrarenal arterial waveforms. Renal artery patent with peak systolic velocity 121 cm/s. Renal vein patent. Normal echogenicity. Right kidney measures 11.3 cm. No hydronephrosis. No convincing evidence of calculus or mass. Left kidney: Intrarenal resistive indices range from 0.44 to 0.49. Normal intrarenal arterial waveforms. Renal artery patent with peak systolic velocity 66 cm/s. Renal vein patent. Normal echogenicity. Left kidney measures 11.8 cm. No hydronephrosis. No convincing evidence of calculus or mass. Abdominal aorta: Patent. Peak systolic velocity 92 cm/s. Other: None. Reference ranges: Normal main renal artery peak systolic velocity less than 180 cm/s. Ratio of renal artery PSV to aortic PSV less than 3.5 equates to normal or less than 60% stenosis. IMPRESSION: No evidence of renal artery stenosis. Electronically signed by: Viraj Fiore M.D. 01/06/2017 10:27 AM Dictated Date/Time: 01/06/2017 10:24 AM
--- NOTE | 2017-01-06 10:41 | Progress Note ---
Subjective Date of Service: Jan 06, 2017. Subjective Pt evaluation today including: conversation w/ patient, physical exam, lab review, review of studies, review of inpatient medication list Saw/examined the patient in room 243 He is doing well, his L arm and L leg weakness is improving; numbness/tingling persist. blood pressure this morning remains elevated Denies any other symptoms Problem List Medical Problems: (1) Hypertensive urgency Status: Acute Review of Systems Constitutional: No fever, No chills Respiratory: No cough, No sputum, No shortness of breath Cardiac: No chest pain, No edema, No palpitations Abdomen: No pain, No nausea, No vomiting, No diarrhea Neurologic: + see HPI, + weakness, + numbness/tingling, + balance problems Medications Current Inpatient Medications Medications (Trade) Dose Ordered Sig/Will Route Start Time Stop Time Status Last Admin Dose Admin Nicardipine HCl 25 mg/Sodium Chloride 250 ml @ 0 mls/hr Q0M IV 01/01/17 11:51 01/31/17 11:50 01/03/17 17:58 25 MLS/HR Enoxaparin Sodium (Lovenox Inj) 40 mg Q24H SC 01/01/17 16:00 01/31/17 15:59 01/05/17 16:45 40 MG Acetaminophen (Tylenol Tab) 650 mg Q4H PRN PO 01/01/17 12:15 01/31/17 12:14 Nitroglycerin (Nitrostat Tab) 0.4 mg UD PRN SL 01/01/17 12:15 01/31/17 12:14 Insulin Aspart (novoLOG ASPART) SLIDING SCALE If C... ACHS SC 01/01/17 16:00 01/31/17 15:59 01/06/17 08:50 5 UNITS Glucose (Glucose 40% Gel) 15-30 GRAMS 15 GRAMS... UD PRN PO 01/01/17 12:15 01/31/17 12:14 Glucose (Glucose Chew Tab) 4-8 Tablets 4 Tabl... UD PRN PO 01/01/17 12:15 01/31/17 12:14 Dextrose (Dextrose 50% 50ML Syringe) 25-50ML OF 50% DW IV FOR... UD PRN IV 01/01/17 12:15 01/31/17 12:14 Glucagon (Glucagon Inj) 1 mg UD PRN SQ 01/01/17 12:15 01/31/17 12:14 Aspirin (Ecotrin Tab) 81 mg QAM PO 01/02/17 09:00 02/01/17 08:59 01/06/17 08:42 81 MG Insulin Glargine (Lantus Solostar Pen) 10 units Q12 SC 01/01/17 21:00 01/31/17 20:59 01/06/17 08:48 10 UNITS Ondansetron HCl (Zofran Inj) 4 mg Q4H PRN IV 01/01/17 17:30 01/31/17 17:29 01/01/17 20:22 4 MG Hydralazine HCl (HydrALAZINE INJ) 10 mg Q6 PRN IV. 01/02/17 02:45 02/01/17 02:44 01/04/17 03:32 10 MG Fluoxetine HCl (Prozac Cap) 20 mg QAM PO 01/04/17 09:00 02/03/17 08:59 01/06/17 08:45 20 MG Clopidogrel Bisulfate (plAVix TAB) 75 mg QAM PO 01/04/17 09:00 02/03/17 08:59 01/06/17 08:44 75 MG Lisinopril (Zestril Tab) 40 mg QAM PO 01/04/17 09:00 02/03/17 08:59 01/06/17 08:47 40 MG Rosuvastatin Calcium (Crestor Tab) 40 mg QAM PO 01/05/17 09:00 02/04/17 08:59 01/06/17 08:42 40 MG Docusate Sodium (coLACE CAP) 100 mg BID PO 01/04/17 21:00 02/03/17 20:59 01/06/17 08:41 100 MG Senna (Senokot Tab) 8.6 mg QAM PO 01/05/17 09:00 02/04/17 08:59 Amlodipine Besylate (Norvasc Tab) 10 mg QAM PO 01/05/17 09:00 02/04/17 08:59 01/06/17 08:43 10 MG Terazosin HCl (Hytrin Cap) 1 mg HS PO 01/05/17 21:00 02/04/17 20:59 01/06/17 02:04 1 MG Carvedilol (Coreg Tab) 6.25 mg BID PO 01/06/17 21:00 02/05/17 20:59 Objective Vital Signs Date Time Temp Pulse Resp B/P (MAP) Pulse Ox O2 Delivery O2 Flow Rate FiO2 01/06/17 09:00 Room Air 01/06/17 08:00 Room Air 01/06/17 07:50 36.3 66 16 157/90 (112) 96 Room Air 01/06/17 04:00 Room Air 01/06/17 03:54 36.7 72 18 177/119 (138) 98 Room Air 01/06/17 00:16 36.5 60 18 178/93 (121) 97 01/05/17 23:59 Room Air 01/05/17 20:08 36.7 61 18 179/94 (122) 96 Room Air 01/05/17 20:00 Room Air 01/05/17 16:00 Room Air 01/05/17 15:55 36.7 70 18 143/93 (110) 96 Room Air 01/05/17 12:00 Room Air 01/05/17 11:00 36.4 60 18 159/96 (117) 98 Room Air Physical Exam General Appearance: no apparent distress Eyes: normal inspection Neck: supple Respiratory/Chest: chest non-tender, lungs clear, normal breath sounds, no respiratory distress, no accessory muscle use Cardiovascular: regular rate, rhythm, no edema, no murmur Neurologic/Psychiatric: alert, normal mood/affect, + motor weakness (L sided, LLE worse than LUE - improving), + sensory deficit Laboratory Results Last 24 Hours Test 01/05/17 11:14 01/05/17 16:42 01/05/17 20:48 01/06/17 06:42 Bedside Glucose 111 mg/dl 131 mg/dl 148 mg/dl White Blood Count 5.30 K/uL Red Blood Count 5.23 M/uL Hemoglobin 15.7 g/dL Hematocrit 44.2 % Mean Corpuscular Volume 84.5 fL Mean Corpuscular Hemoglobin 30.0 pg Mean Corpuscular Hemoglobin Concent 35.5 g/dl RDW Standard Deviation 39.8 fL RDW Coefficient of Variation 13.0 % Platelet Count 274 K/uL Mean Platelet Volume 10.5 fL Sodium Level 141 mmol/L Potassium Level 3.7 mmol/L Chloride Level 105 mmol/L Carbon Dioxide Level 25 mmol/L Anion Gap 10.0 mmol/L Blood Urea Nitrogen 28 mg/dl Creatinine 1.32 mg/dl Est Creatinine Clear Calc Drug Dose 77.0 ml/min Estimated GFR () 70.9 Estimated GFR (Non- 61.2 BUN/Creatinine Ratio 20.9 Random Glucose 118 mg/dl Calcium Level 8.9 mg/dl Assessment and Plan This is a 52 year old male with no past medical history presented with L sided numbness/tingling/weakness Acute CVA 01/06 will continue aspirin + Plavix for three months then just aspirin PT/OT discharge to [facility] rehab 01/05 PT/OT aspirin + Plavix x3 months, then just aspirin 01/04 patient presented with L sided arm and leg numbness/tingling and motor weakness which has been intermittent initial Head CT and MRI were negative for acute processes (old lacunar infarct seen) repeat Head CT also negative, but due to persistent symptoms a repeat Brain MRI was performed showing an acute lacunar stroke likely due to malignant HTN as above started aspirin 81mg, Plavix 75mg x3 months, then just aspirin PT/OT/speech appreciate neurology input Hypertensive Urgency 01/06 changed Toprol to Coreg as per cardiology added Terazosin in the PM continue Lisinopril and Amlodipine 01/05 Toprol XL 25mg, Lisinopril 40mg - BP still elevated started on amlodipine 10mg may need fourth agent if blood pressure remains elevated 01/04 patient presented with SBP >250/100 given Hydralazine, Labetalol in the ED with little change in blood pressure this seems like long-standing uncontrolled HTN due to LVH changes on EKG and echo initially started on nicardipine drip at 5mg/hr initially - goal reduction should be slow; ~ 180-190 SBP in 24 hours currently off of the drip, now started on Lisinopril 40mg, Amlodipine 5mg and Metoprolol - will adjust medications accordingly ? 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 consulted cardiology - as of now, BP control, will await consultation for further recommendations fat pad biopsy negative New Diagnosis of DM2 Ha1c = 10.2% started patient on Lantus 10 units BID and a sliding scale will likely need insulin on discharge started on Lisinopril started on aspirin 81mg and statin diabetic education consulted Hyperlipidemia total cholesterol > 300 LDL ~ 240 Lipitor changed to Crestor 40mg DVT ppx Lovenox FULL CODE
[2017-01-06] MEDS: ENOXAPARIN 40 MG/0.4 ML SYR SC SCH (16:38)
[2017-01-06] MEDS: CARVEDILOL 6.25 MG TAB PO SCH (21:00)
[2017-01-07 03:52] VITALS: BP 135/77; PULSE 61; TEMP 36.6; O2SAT 95
[2017-01-07 06:13] LABS: HEMATOCRIT 41.9 % (42-52); MEAN CELL VOLUME 84.3 fL (80-100); MEAN CORPUSCULAR HEMOGLOBIN 29.8 pg (25-34); MEAN CORPUSCULAR HGB CONC 35.3 g/dl (32-36); MEAN PLATELET VOLUME 10.5 fL (7.4-10.4); PLATELET COUNT 278 K/uL (130-400); RED BLOOD COUNT 4.97 M/uL (4.7-6.1); WHITE BLOOD COUNT 6.37 K/uL (4.8-10.8)
[2017-01-07 06:47] LABS: BUN/CREATININE RATIO 24.3 (10-20); CALCIUM 8.8 mg/dl (8.5-10.1); CREATININE 1.36 mg/dl (0.60-1.40); POTASSIUM 3.3 mmol/L (3.5-5.1)
[2017-01-07 08:00] VITALS: BP 145/84; PULSE 64; TEMP 36.3; O2SAT 97
[2017-01-07] MEDS: LISINOPRIL 40 MG TAB PO SCH (08:01)
[2017-01-07] MEDS: ROSUVASTATIN CALCIUM 20 MG TAB PO SCH (08:02)
[2017-01-07] MEDS: AMLODIPINE BESYLATE 5 MG TAB PO SCH (08:02)
[2017-01-07] MEDS: ASPIRIN 81 MG ECTAB PO SCH (08:02)
[2017-01-07] MEDS: CLOPIDOGREL BISULFATE 75 MG TAB PO SCH (08:02)
[2017-01-07] MEDS: FLUOXETINE HCL 20 MG CAP PO SCH (08:03)
[2017-01-07] MEDS: SENNA 8.6 MG TAB PO SCH (08:03)
[2017-01-07] MEDS: DOCUSATE SODIUM 100 MG CAP PO SCH (08:04)
[2017-01-07] MEDS: INSULIN ASPART 100 UNITS/ML 3 ML PEN SC SCH (08:06)
[2017-01-07] MEDS: INSULIN GLARGINE SOLOSTAR 100 UNITS/ML 3 ML PEN SC SCH (08:06)
[2017-01-07] MEDS ORDERED: POTASSIUM CHLORIDE 20 MEQ TABCR PO ONE ×3 (08:45→09:06)
[2017-01-07] MEDS: CARVEDILOL 6.25 MG TAB PO SCH (09:05)
--- NOTE | 2017-01-07 09:05 | Cardiology Follow-Up ---
Subjective General Date of Service: Jan 07, 2017. Chief Complaint: Hypertension, CVA Pt evaluation today including: conversation w/ patient, physical exam, chart review, lab review, review of studies, review of inpatient medication list History of Present Illness Patient seen and examined. Chart, medications, and telemetry reviewed. No chest pain, palpitations, dyspnea, cough, orthopnea, PND, or peripheral edema + Ongoing left upper extremity tingling, left lower extremity weakness Telemetry: Currently sinus at 72 bpm. Bradycardic down to 40 bpm at 23:32:28. Atrial and ventricular ectopy (Mild PAC's, multifocal PVC's in singles). One nonsustained episode of SVT at 04:54:51. No atrial fibrillation, atrial flutter , sustained ventricular arrhythmias, significant bradyarrhythmias, or pauses. Allergies Coded Allergies: No Known Allergies (Unverified , 01/01/17) Social History Hx Tobacco Use In Past Year?: No Hx Alcohol Use - Type And Amou: No Hx Substance Use - Type And Am: No Problem List Medical Problems: (1) Hypertensive urgency Status: Acute Physical Exam Vital Signs Last Vital Signs Documentation Date Time Temp Pulse Resp B/P (MAP) Pulse Ox O2 Delivery O2 Flow Rate FiO2 01/07/17 08:00 36.3 64 18 145/84 (104) 97 Room Air Physical Exam Constitutional: General Apperance: heathly-appearing Level of Distress: NAD Psychiatric: Mental Status: active & alert Orientation: to time, to place, to person Memory: recent memory normal, remote memory normal Head: normocephalic, atraumatic Eyes: Pupils: PERRLA Neck: pertinent finding (No JVD) Lungs: Respiratory effort: no dyspnea Auscultation: breath sounds normal, no wheezing, no rales/crackles, no rhonchi Cardiovascular: Apical Impulse: not displaced Heart Auscultation: RRR, normal S1, normal S2, no murmurs, no rubs, no gallops Peripheral Pulses: Dorsalis Pedis Pulse: normal on the left, normal on the right Abdomen: Bowel Sounds: normal Inspection & Palpation: soft Extremities: no cyanosis, no edema, no clubbing Assessment and Plan Assessment and Plan Admission on January 01, 2017, acute cerebrovascular accident. Acute cerebrovascular accident High intensity statin therapy prescribed (see below) Hypertension. See below. Neurology advised Aspirin & Clopidogrel x 3 months then aspirin alone PT/OT, eventual rehabilitation at [place] Marked hypertension, hypertensive urgency, hypertensive heart disease Echocardiography raised concern for amyloid cardiomyopathy. Amyloidosis NOT seen on the 01/04/2017 fat pad biopsy. Renal duplex OK. Random aldosterone level, renin level, plasma metanephrines and catecholamines requested Blood pressures improved Nonpharmacological treatments previously discussed Continue Carvedilol (also prescribed for asymptomatic NS-VT), Lisinopril 40 mg/day, Amlodipine 10 mg/day, and Terazosin 1 mg QHS. Patient aware of the benefits, risks, adverse reactions, etc of the above medications. Nonsustained wide complex tachycardia consistent with nonsustained ventricular tachycardia Asymptomatic Supplement potassium (3.3 mmol/L today) TSH normal (0.813 uIU/mL) on 01/02/2017. Continue beta-chintan therapy Extremely elevated LDL level (247 mg/dL) ? familial hypercholesterolemia Rosuvastatin 40 mg/day prescribed. Recommend genetic testing as an outpatient. Anticoagulation. No cardiac indication for the use of anticoagulation at this point. Newly diagnosed type II diabetes mellitus. HgA1c 10.2% As per the Hospitalized service. Patient is a suitable candidate for discharge from a cardiac standpoint. Will sign off. Please contact with any questions or concerns. Cardiology attending: Pt seen and examined, agree with findings and assessment as per Alden Crane. BP now well controlled. Bed available at rehab. For d/c today. Cont current medical regimen. Laboratory Results Last 24 Hours Test 01/06/17 11:40 01/06/17 16:28 01/06/17 21:21 01/07/17 05:41 Bedside Glucose 144 mg/dl 127 mg/dl 108 mg/dl White Blood Count 6.37 K/uL Red Blood Count 4.97 M/uL Hemoglobin 14.8 g/dL Hematocrit 41.9 % Mean Corpuscular Volume 84.3 fL Mean Corpuscular Hemoglobin 29.8 pg Mean Corpuscular Hemoglobin Concent 35.3 g/dl RDW Standard Deviation 39.2 fL RDW Coefficient of Variation 13.0 % Platelet Count 278 K/uL Mean Platelet Volume 10.5 fL Sodium Level 140 mmol/L Potassium Level 3.3 mmol/L Chloride Level 103 mmol/L Carbon Dioxide Level 26 mmol/L Anion Gap 11.0 mmol/L Blood Urea Nitrogen 33 mg/dl Creatinine 1.36 mg/dl Est Creatinine Clear Calc Drug Dose 74.7 ml/min Estimated GFR () 68.4 Estimated GFR (Non- 59.0 BUN/Creatinine Ratio 24.3 Random Glucose 80 mg/dl Calcium Level 8.8 mg/dl Test 01/07/17 08:17
--- NOTE | 2017-01-07 10:19 | Progress Note ---
Medicine Progress Note Date & Time of Visit: Jan 07, 2017 at 09:41. Subjective Pt was seen and examined Sitting at the edge of the bed with no distress Pt just walked with PT he said that he feels fine His blood pressure is controlled His family will drive him to [facility] today for inpatient rehab denies any chest pain, palpitation, dizziness and SOB Objective Last 8 Hrs Date Time Temp Pulse Resp B/P (MAP) Pulse Ox O2 Delivery O2 Flow Rate FiO2 01/07/17 08:00 36.3 64 18 145/84 (104) 97 Room Air 01/07/17 04:00 Room Air 01/07/17 03:52 36.6 61 20 135/77 (96) 95 Room Air Physical Exam: General- No acute distress Head- atraumatic Eyes- PERRL, EOMI ENT- oropharynx clear Neck- supple, no JVD Lungs- clear to auscultation Heart- regular rhythm; no murmur Abdomen- normal bowel sounds, soft Extremities- no pretibial edema, no calf tenderness Neuro- alert, oriented x 3; PERRL, EOMI; no facial palsy; no dysarthria Skin- warm & dry Laboratory Results: Last 24 Hours Test 01/06/17 11:40 01/06/17 16:28 01/06/17 21:21 01/07/17 05:41 Bedside Glucose 144 mg/dl 127 mg/dl 108 mg/dl White Blood Count 6.37 K/uL Red Blood Count 4.97 M/uL Hemoglobin 14.8 g/dL Hematocrit 41.9 % Mean Corpuscular Volume 84.3 fL Mean Corpuscular Hemoglobin 29.8 pg Mean Corpuscular Hemoglobin Concent 35.3 g/dl RDW Standard Deviation 39.2 fL RDW Coefficient of Variation 13.0 % Platelet Count 278 K/uL Mean Platelet Volume 10.5 fL Sodium Level 140 mmol/L Potassium Level 3.3 mmol/L Chloride Level 103 mmol/L Carbon Dioxide Level 26 mmol/L Anion Gap 11.0 mmol/L Blood Urea Nitrogen 33 mg/dl Creatinine 1.36 mg/dl Est Creatinine Clear Calc Drug Dose 74.7 ml/min Estimated GFR () 68.4 Estimated GFR (Non- 59.0 BUN/Creatinine Ratio 24.3 Random Glucose 80 mg/dl Calcium Level 8.8 mg/dl Test 01/07/17 08:52 11/17/17 09:31 Assessment & Plan Acute lacunar Infarct Presented with L sided arm and leg numbness/tingling and motor weakness which has been intermittent Possible related malignant HTN Initial Head CT and MRI were negative for acute abnormality ( Showed old lacunar infarct) Repeat MRI showed Interval development of acute lacunar infarct in the posterior lateral right thalamus. The presence of increased FLAIR signal intensity suggests an infarct at least 6 hours old. Starting on aspirin 81mg and Plavix 75mg x3 months, then just aspirin for lifetime Continue statin Neurology on board Continue PT/OT/Speech coag work up negative Will go to [facility] for inpatient rehab Follow up with neurology Hypertensive Urgency Presented with BP >250/100 Mostly long-standing uncontrolled HTN due to LVH changes on EKG and echo Was starting initially on Nicardipine drip Now on lisinopril, 40mg, amlodipine 10 mg daily Terazosin 1 gm HS and coreg 6.25 mg BID BP well controlled Continue monitor BP Renal duplex OK. Random aldosterone level, renin level, plasma metanephrines and catecholamines Pending ? 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 * Normal LV systolic function, EF 60-65%. * No segmental left ventricular wall motion abnormalities are noted. * Grade I diastolic dysfunction. * There is mild right ventricular hypertrophy. * No significant valvular pathology. * Moderate left atrial enlargement. * No interatrial shunt present New Diagnosis of DM2 Ha1c = 10.2% Starting on Lantus 10 units BID and a sliding scale Diabetic education consulted On ACEI, ASA, Statin Nonsustained wide complex tachycardia consistent with nonsustained ventricular tachycardia Asymptomatic Continue Coreg 6.25 mg BID Hyperlipidemia total cholesterol > 300 LDL ~ 240 On Crestor 40mg Advised pt to follow a low cholesterol diet DVT ppx Lovenox subq CODE STATUS FULL CODE DISPOSITION Discharge today to [facility] for inpatient Rehab Follow up with your PCP once discharge to rehab Random aldosterone level, renin level, plasma metanephrines and catecholamines Pending Consultants: Cardiology Neuro Current Inpatient Medications: Current Inpatient Medications Medications (Trade) Dose Ordered Sig/Will Route Start Time Stop Time Status Last Admin Dose Admin Nicardipine HCl 25 mg/Sodium Chloride 250 ml @ 0 mls/hr Q0M IV 01/01/17 11:51 01/31/17 11:50 01/03/17 17:58 25 MLS/HR Enoxaparin Sodium (Lovenox Inj) 40 mg Q24H SC 01/01/17 16:00 01/31/17 15:59 01/06/17 16:38 40 MG Acetaminophen (Tylenol Tab) 650 mg Q4H PRN PO 01/01/17 12:15 01/31/17 12:14 Nitroglycerin (Nitrostat Tab) 0.4 mg UD PRN SL 01/01/17 12:15 01/31/17 12:14 Insulin Aspart (novoLOG ASPART) SLIDING SCALE If C... ACHS SC 01/01/17 16:00 01/31/17 15:59 01/07/17 08:06 4 UNITS Glucose (Glucose 40% Gel) 15-30 GRAMS 15 GRAMS... UD PRN PO 01/01/17 12:15 01/31/17 12:14 Glucose (Glucose Chew Tab) 4-8 Tablets 4 Tabl... UD PRN PO 01/01/17 12:15 01/31/17 12:14 Dextrose (Dextrose 50% 50ML Syringe) 25-50ML OF 50% DW IV FOR... UD PRN IV 01/01/17 12:15 01/31/17 12:14 Glucagon (Glucagon Inj) 1 mg UD PRN SQ 01/01/17 12:15 01/31/17 12:14 Aspirin (Ecotrin Tab) 81 mg QAM PO 01/02/17 09:00 02/01/17 08:59 01/07/17 08:02 81 MG Insulin Glargine (Lantus Solostar Pen) 10 units Q12 SC 01/01/17 21:00 01/31/17 20:59 01/07/17 08:06 10 UNITS Ondansetron HCl (Zofran Inj) 4 mg Q4H PRN IV 01/01/17 17:30 01/31/17 17:29 01/01/17 20:22 4 MG Hydralazine HCl (HydrALAZINE INJ) 10 mg Q6 PRN IV. 01/02/17 02:45 02/01/17 02:44 01/04/17 03:32 10 MG Fluoxetine HCl (Prozac Cap) 20 mg QAM PO 01/04/17 09:00 02/03/17 08:59 01/07/17 08:03 20 MG Clopidogrel Bisulfate (plAVix TAB) 75 mg QAM PO 01/04/17 09:00 02/03/17 08:59 01/07/17 08:02 75 MG Lisinopril (Zestril Tab) 40 mg QAM PO 01/04/17 09:00 02/03/17 08:59 01/07/17 08:01 40 MG Rosuvastatin Calcium (Crestor Tab) 40 mg QAM PO 01/05/17 09:00 02/04/17 08:59 01/07/17 08:02 40 MG Docusate Sodium (coLACE CAP) 100 mg BID PO 01/04/17 21:00 02/03/17 20:59 01/06/17 08:41 100 MG Senna (Senokot Tab) 8.6 mg QAM PO 01/05/17 09:00 02/04/17 08:59 Amlodipine Besylate (Norvasc Tab) 10 mg QAM PO 01/05/17 09:00 02/04/17 08:59 01/07/17 08:02 10 MG Terazosin HCl (Hytrin Cap) 1 mg HS PO 01/05/17 21:00 02/04/17 20:59 01/06/17 21:32 1 MG Carvedilol (Coreg Tab) 6.25 mg BID PO 01/06/17 21:00 02/05/17 20:59 01/07/17 09:05 6.25 MG
--- NOTE | 2017-01-07 10:36 | Discharge Instructions ---
Discharge Instructions Date of Service Jan 07, 2017. Admission Reason for Admission: Hypertensive Urgency, Stroke-Like Symptom Discharge Discharge Diagnosis / Problem: Acute lacunar Infarct, Hypertensive Urgency, New onset of Diabetes, DL Discharge Goals Goal(s): Decrease discomfort, Improve function, Improve disease control Activity Recommendations Activity Limitations: resume your previous activity (as tolerated) . Instructions / Follow-Up Instructions / Follow-Up Discharge today to [facility] for inpatient Rehab Follow up with your primary care provider once discharge from rehab Follow up with Neurology once discharge from rehab Continue PT/OT/Speech therapy Fall precaution Continue monitor blood pressure Monitor blood sugar Continue Lantus subQ for diabetes and your primary care provider will titrate as needed Follow up a healthy diabetes and cholesterol diet with low Carb and limited concentrated sugar intake Random aldosterone level, renin level, plasma metanephrines and catecholamines Pending Continue Aspirin 81 mg and plavix 75 mg for 3 months, then aspirin for lifetime Risk Factors for Stroke: You can reduce your chances of stroke by working with your medical provider to adopt a healthy lifestyle. Some specific ways to lower your chance of stroke are: * If you are a smoker, now is the time to stop smoking cigarettes * If you are diabetic, improve the control of your blood sugars * Avoid excessive amounts of alcohol * Control high blood pressure * Lose weight if you are overweight * Be sure to lead an active lifestyle * Eat a healthy diet low in salt, cholesterol and fat You should know about other risk factors for stroke that you are unable to control. These include: * Age 55 years or older * Male gender * Certain racial groups: , or / * Family History of Stroke, Mini stroke or Heart Attack * Sickle Cell Disease Follow Up: It is important for you to keep your follow up appointments with your medical provider. Current Hospital Diet Patient's current hospital diet: Diabetes Type 2 Diet, AHA Diet (Heart Healthy) Discharge Diet Recommended Diet: AHA Diet (Heart Healthy), Diabetes Type 2 Diet Pending Studies Studies pending at discharge: yes List of pending studies: Random aldosterone level, renin level, plasma metanephrines and catecholamines Pending Laboratory Results Hemoglobin A1c Test 01/01/17 10:38 Range/Units Estimated Average Glucose 246 mg/dl Hemoglobin A1c 10.2 H 4.5-5.6 % Lipid Panel Test 01/02/17 07:30 Range/Units Triglycerides Level 178 H 0-150 mg/dl Cholesterol Level 339 H 0-200 mg/dl HDL Cholesterol 56 mg/dl Cholesterol/HDL Ratio 6.1 LDL Cholesterol, Calculated 247 mg/dl Medical Emergencies . Who to Call and When: Medical Emergencies: Call 911 immediately if you experience any of the following warning signs and symptoms of Stroke: * Sudden numbness or weakness of the face, arm or leg, especially on one side of the body * Sudden confusion, trouble speaking or understanding * Sudden trouble seeing in one or both eyes * Sudden trouble walking, dizziness, loss of balance or coordination * Sudden severe headache with no cause Do not delay calling 911 if you experience any warning signs or symptoms of a stroke. Delay in seeking medical attention may affect what treatments can be given to you. . Non-Emergent Contact Non-Emergency issues call your: Primary Care Provider Call Non-Emergent contact if: you have any medication questions . . "Provider Documentation" section prepared by Lynn Carr. . Stroke Core Measures Reason no t-PA for Stroke: Treatment not indicated Reason no antithrom by day 2: Treatment not indicated Reason no antithrom at D/C: Treatment not indicated Reason no statin at D/C: Treatment provided - N/A Reason no anticoag w/a fib: Treatment not indicated VTE Core Measure Inpt VTE Proph given/why not?: Enoxaparin (Lovenox)SQ
[2017-01-07] MEDS ORDERED: PLV75 PO (10:52)
[2017-01-07] MEDS ORDERED: FLUO20CA36 PO (10:52)
[2017-01-07] MEDS ORDERED: HYT1 PO (10:52)
[2017-01-07] MEDS ORDERED: CRG625 PO (10:52)
[2017-01-07] MEDS ORDERED: ROSU40TA PO (10:52)
[2017-01-07] MEDS ORDERED: LSN40 PO (10:52)
[2017-01-07] MEDS ORDERED: INSDGIPEN SC (10:52)
[2017-01-07] MEDS ORDERED: NRV/10 PO (10:52)
--- NOTE | 2017-01-07 11:04 | Discharge Summary ---
Discharge Summary Date of Service Jan 07, 2017. Discharge Summary Admission Date: Jan 01, 2017 at 12:25 Discharge Date: Jan 07, 2017 Discharge Disposition: Rehab Principal Diagnosis: Acute lacunar Infarct Secondary Diagnoses/Problems: Hypertensive Urgency New onset of Diabetes, Dyslipidemia ? Amyloid Deposits Nonsustained wide complex tachycardia consistent with nonsustained ventricular tachycardia Procedures: Interpretation Summary * Name: NESTOR NANCE Study Date: 01/01/2017 01:10 PM BP: 170/91 mmHg * Patient Location: C.EDB HR: 75 * : 1965 (M/d/yyyy) Gender: Male Height: 72 in * Age: 52 yrs Ethnicity: CA Weight: 220 lb * Ordering Physician: Nikki Rios * Referring Physician: Self, Referred * Performed By: Ladonna Mcgregor RCS * * Reason For Study: HTN * BSA: 2.2 m2 * -- Conclusions -- * Normal LV chamber size with severe concentric LVH, speckling pattern suggestive of amyloid cardiomyopathy. * Normal LV systolic function, EF 60-65%. * No segmental left ventricular wall motion abnormalities are noted. * Grade I diastolic dysfunction. * There is mild right ventricular hypertrophy. * No significant valvular pathology. * Moderate left atrial enlargement. Procedure Details * A complete two-dimensional transthoracic echocardiogram was performed (2D, M- mode, Doppler and color flow Doppler). Left Ventricle * The left ventricle is normal in size. * There is severe concentric left ventricular hypertrophy. * Left ventricular systolic function is normal. * No segmental left ventricular wall motion abnormalities are noted. * Ejection Fraction = 60-65%. * The left ventricular wall motion is normal. Right Ventricle * The right ventricular cavity size is normal (basal dimension <4.2 cm in right ventricular apical 4-chamber view). * There is mild right ventricular hypertrophy. * The right ventricular systolic function is normal as assessed by tricuspid annular plane systolic excursion (TAPSE) (normal >1.5 cm). Atria * The left atrium is moderately dilated. * Right atrial size is normal. * No ASD detected; PFO is not assessed. Mitral Valve * The mitral valve is normal in structure and function. Tricuspid Valve * The tricuspid valve is normal in structure and function. Aortic Valve * The aortic valve is not well visualized. * No hemodynamically significant valvular aortic stenosis. * There is no significant aortic regurgitation. Pulmonic Valve * The pulmonary valve is not well seen, but the Doppler examination is normal without significant regurgitation or stenosis. Great Vessels * The aortic root is normal size. Pericardium/Pleural * There is no pericardial effusion. Left Ventricular Diastolic Function * Grade I diastolic dysfunction, (abnormal relaxation pattern). BRAIN WITHOUT CONTRAST CLINICAL HISTORY: 52 years-old Male presenting with cva, acute left hemiparesis. TECHNIQUE: Multisequence, multiplanar MR imaging of the brain was performed without the use of intravenous contrast. IV contrast: None. COMPARISON: CT head performed on 01/02/2017 and MR brain from 01/01/2017. FINDINGS: Ventricles and sulci normal in size. Periventricular and subcortical white matter T2/FLAIR hyperintensity, nonspecific but likely indicative of chronic small vessel ischemic change. Old lacunar infarcts noted in the bilateral basal ganglia. Old right cerebellar hemispheric infarct also suggested. No mass effect or midline shift. Interval development of restricted diffusion in the posterior lateral right thalamus with associated increased FLAIR signal intensity. No extra-axial fluid collection. T2 skull base flow voids preserved. Polypoid mucosal thickening in the maxillary sinuses. Bone marrow signal intensity within the calvarium within normal limits. IMPRESSION: 1. Interval development of acute lacunar infarct in the posterior lateral right thalamus. The presence of increased FLAIR signal intensity suggests an infarct at least 6 hours old. 2. Chronic small vessel ischemic change and multiple small old lacunar infarcts. Electronically signed by: Viraj Fiore M.D. 01/03/2017 9:41 AM Dictated Date/Time: 01/03/2017 9:35 AM Consultations: Cardiology Neuro Pending Studies/Follow-Up: Random aldosterone level, renin level, plasma metanephrines and catecholamines Pending Medication Reconciliation New Medications: Amlodipine Besylate (Amlodipine Besylate) 10 Mg Tab 1 TAB PO DAILY for 30 Days Carvedilol (Carvedilol) 6.25 Mg Tab 6.25 MG PO BID for 30 Days, #60 TAB Clopidogrel Bisulfate (Clopidogrel) 75 Mg Tab 75 MG PO QAM for 30 Days, #30 TAB Fluoxetine HCl (Fluoxetine HCl) 20 Mg Cap 20 MG PO QAM for 30 Days, #30 CAP Insulin Glargine (Lantus Solostar) 100 Unit/Ml Inj 10 UNITS SC Q12 for 30 Days Lisinopril (Lisinopril) 40 Mg Tab 40 MG PO QAM for 30 Days, #30 TAB Rosuvastatin Calcium (Crestor) 40 Mg Tab 1 TAB PO DAILY for 30 Days, #30 TAB Terazosin HCl (Terazosin HCl) 1 Mg Cap 1 MG PO HS for 30 Days, CAP Continued Medications: Aspirin (Aspirin Ec) 81 Mg Tab 1 DOSE PO UD PRN for STROKE SYMPTOMS Admission Information HPI (per Admitting provider): This is a 52 year old male with no past medical history - does not follow with a primary care physician and does no take any medications - presents secondary to L sided weakness; L arm numbness/tingling and L leg motor weakness. States that he had this about 8 days prior to arrival, and the symptoms lasted around 20 minutes. He states that another time, he was having trouble typing with his left hand; it was weak and he was missing the keys. This morning, he developed L sided weakness/numbness/tingling again; again it lasted about 20 minutes and symptoms began to subside, but he came to the ER for further evaluation. On presentation, he was noted to have blood pressure >250/100; noted to have blood sugars >300. Head CT was negative. Symptoms resolved, but blood pressure remained high. Physical Exam (per Admitting): General Appearance: no apparent distress Head: normocephalic, atraumatic Eyes: normal inspection ENT: hearing grossly normal Neck: supple Respiratory/Chest: chest non-tender, lungs clear, normal breath sounds, no respiratory distress, no accessory muscle use Cardiovascular: regular rate, rhythm, no edema, no gallop, no JVD, no murmur , normal peripheral pulses Abdomen/GI: normal bowel sounds, non tender, soft Back: no CVA tenderness, no muscle spasm Extremities/Musculoskelatal: normal inspection, no calf tenderness, normal capillary refill, no pedal edema, normal range of motion 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 The presence of increased FLAIR signal intensity suggests an infarct at least 6 hours old. Starting on aspirin 81mg and Plavix 75mg x3 months, then just aspirin for lifetime Continue statin Neurology on board Continue PT/OT/Speech coag work up negative Will go to [facility] for inpatient rehab Follow up with neurology Hypertensive Urgency Presented with BP >250/100 Mostly long-standing uncontrolled HTN due to LVH changes on EKG and echo Was starting initially on Nicardipine drip Now on lisinopril, 40mg, amlodipine 10 mg daily Terazosin 1 gm HS and coreg 6.25 mg BID BP well controlled Continue monitor BP Renal duplex OK. Random aldosterone level, renin level, plasma metanephrines and catecholamines Pending ? 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 * Normal LV systolic function, EF 60-65%. * No segmental left ventricular wall motion abnormalities are noted. * Grade I diastolic dysfunction. * There is mild right ventricular hypertrophy. * No significant valvular pathology. * Moderate left atrial enlargement. * No interatrial shunt present New Diagnosis of DM2 Ha1c = 10.2% Starting on Lantus 10 units BID and a sliding scale Diabetic education consulted On ACEI, ASA, Statin Nonsustained wide complex tachycardia consistent with nonsustained ventricular tachycardia Asymptomatic Continue Coreg 6.25 mg BID Hyperlipidemia total cholesterol > 300 LDL ~ 240 On Crestor 40mg Advised pt to follow a low cholesterol diet DVT ppx Lovenox subq CODE STATUS FULL CODE DISPOSITION Discharge today to [facility] for inpatient Rehab Follow up with your PCP once discharge to rehab Random aldosterone level, renin level, plasma metanephrines and catecholamines Pending Total time spent on discharge = 40 minutes This includes examination of the patient, discharge planning, medication reconciliation, and communication with other providers. Discharge Instructions Discharge Instructions Date of Service Jan 07, 2017. Admission Reason for Admission: Hypertensive Urgency, Stroke-Like Symptom Discharge Discharge Diagnosis / Problem: Acute lacunar Infarct, Hypertensive Urgency, New onset of Diabetes, DL Discharge Goals Goal(s): Decrease discomfort, Improve function, Improve disease control Activity Recommendations Activity Limitations: resume your previous activity (as tolerated) . Instructions / Follow-Up Instructions / Follow-Up Discharge today to [facility] for inpatient Rehab Follow up with your primary care provider once discharge from rehab Follow up with Neurology once discharge from rehab Continue PT/OT/Speech therapy Fall precaution Continue monitor blood pressure Monitor blood sugar Continue Lantus subQ for diabetes and your primary care provider will titrate as needed Follow up a healthy diabetes and cholesterol diet with low Carb and limited concentrated sugar intake Random aldosterone level, renin level, plasma metanephrines and catecholamines Pending Continue Aspirin 81 mg and plavix 75 mg for 3 months, then aspirin for lifetime Risk Factors for Stroke: You can reduce your chances of stroke by working with your medical provider to adopt a healthy lifestyle. Some specific ways to lower your chance of stroke are: * If you are a smoker, now is the time to stop smoking cigarettes * If you are diabetic, improve the control of your blood sugars * Avoid excessive amounts of alcohol * Control high blood pressure * Lose weight if you are overweight * Be sure to lead an active lifestyle * Eat a healthy diet low in salt, cholesterol and fat You should know about other risk factors for stroke that you are unable to control. These include: * Age 55 years or older * Male gender * Certain racial groups: , or / * Family History of Stroke, Mini stroke or Heart Attack * Sickle Cell Disease Follow Up: It is important for you to keep your follow up appointments with your medical provider. Current Hospital Diet Patient's current hospital diet: Diabetes Type 2 Diet, AHA Diet (Heart Healthy) Discharge Diet Recommended Diet: AHA Diet (Heart Healthy), Diabetes Type 2 Diet Pending Studies List of pending studies: Random aldosterone level, renin level, plasma metanephrines and catecholamines Pending Laboratory Results Hemoglobin A1c Test 01/01/17 10:38 Range/Units Estimated Average Glucose 246 mg/dl Hemoglobin A1c 10.2 H 4.5-5.6 % Lipid Panel Test 01/02/17 07:30 Range/Units Triglycerides Level 178 H 0-150 mg/dl Cholesterol Level 339 H 0-200 mg/dl HDL Cholesterol 56 mg/dl Cholesterol/HDL Ratio 6.1 LDL Cholesterol, Calculated 247 mg/dl Medical Emergencies . Who to Call and When: Medical Emergencies: Call 911 immediately if you experience any of the following warning signs and symptoms of Stroke: * Sudden numbness or weakness of the face, arm or leg, especially on one side of the body * Sudden confusion, trouble speaking or understanding * Sudden trouble seeing in one or both eyes * Sudden trouble walking, dizziness, loss of balance or coordination * Sudden severe headache with no cause Do not delay calling 911 if you experience any warning signs or symptoms of a stroke. Delay in seeking medical attention may affect what treatments can be given to you. . Non-Emergent Contact Non-Emergency issues call your: Primary Care Provider Call Non-Emergent contact if: you have any medication questions . . "Provider Documentation" section prepared by Lynn Carr. . Stroke Core Measures Reason no t-PA for Stroke: Treatment not indicated Reason no antithrom by day 2: Treatment not indicated Reason no antithrom at D/C: Treatment not indicated Reason no statin at D/C: Treatment provided - N/A Reason no anticoag w/a fib: Treatment not indicated VTE Core Measure Inpt VTE Proph given/why not?: Enoxaparin (Lovenox)SQ
[2017-01-07 12:00] VITALS: BP 119/76; PULSE 52; TEMP 36.5; O2SAT 100
[2017-01-12 18:26] LABS: CATECH DOPAMINE 115 pg/mL; CATECH EPINEPHRINE 110 pg/mL; CATECH NOREPINEPRHINE 1860 pg/mL
== END 2017-01-07 12:45 | DRG 65 ==
LOC: C.EDB 09:52 → C.2T 12:25 → ENRESERV 13:01
PROVIDERS: ADMIT Family Medicine; ATTEND Internal Medicine
DX: I63.8 Other cerebral infarction (principal); I47.2 Ventricular tachycardia; I16.0 Hypertensive urgency; E78.5 Hyperlipidemia, unspecified; E11.9 Type 2 diabetes mellitus without complications; Z82.49 Family history of ischemic heart disease and other diseases of the circulatory system